=== PATIENT | female | born 1935 | race Caucasian/White ===

== ENCOUNTER 2016-08-09 16:34 | Inpatient (IN) | payer OTHER ==
[~2016-08-09] VITALS: Ht 160 cm; Wt 78.3 kg
[~2016-08-09 16:34] MED LIST: ASCO500T8 PO; BUDE10.2 INH; CHOL100014 PO; GABA300C10 PO; HYDR-3241 PO; LISI-167 PO; LOVA10TA; METF100P3 PO; METF500T4 PO; METH500T97 PO; SIMV20TA3 PO; SIMV40TA3 PO; TERI2.4P SQ; TIOT18CA INH; TRAM50TA2 PO; [UNRECOGNIZED DRUG - OTHER]; [UNRECOGNIZED DRUG - OTHER] TP; baby aspirin; blood pressure; cholesterol; norco
[2016-08-09] MEDS ORDERED: ALBUTEROL/IPRATROPIUM 2.5MG/0.5MG, 3 ML NPPB ONE (17:30)
[2016-08-09] MEDS ORDERED: methylPREDNISolone SOD SUCC 125 MG/2 ML IVP ONE (17:30)
[2016-08-09] MEDS ORDERED: SODIUM CHLORIDE 0.9% 1,000ML IVBOLUS ONE (17:30)
[2016-08-09] MEDS ORDERED: methylPREDNISolone SOD SUCC 125 MG/2 ML ONE (17:38)
[2016-08-09] MEDS ORDERED: ALBUTEROL/IPRATROPIUM 2.5MG/0.5MG, 3 ML ONE (17:51)
[2016-08-09 17:58] LABS: BLOOD UREA NITROGEN 26 mg/dL (7-18)
[2016-08-09] MEDS: CEFTRIAXONE PMX 1GM/50ML 50 ML IV SCH (20:00)
[2016-08-09] MEDS ORDERED: DEXTROSE 50%, 50ML SYRINGE IVPush PRN (20:00)
[2016-08-09] MEDS ORDERED: DEXTROSE 4 GM TAB.CHEW PO PRN (20:00)
[2016-08-09] MEDS ORDERED: GLUCAGON 1 MG IM PRN (20:00)
[2016-08-09] MEDS: D5%-0.45% NACL 1,000 ML IV SCH (20:01)
[2016-08-09] MEDS ORDERED: ONDANSETRON 2MG/ML, 2ML IVP PRN (20:30)
[2016-08-09] MEDS ORDERED: ENOXAPARIN 40 MG/0.4 ML SQ SCH (20:30)
[2016-08-09] MEDS ORDERED: BISACODYL 10 MG SUPP PR PRN (20:30)
[2016-08-09] MEDS ORDERED: POLYETHYLENE GLYCOL 17 GM PACKET PO PRN (20:30)
[2016-08-09] MEDS ORDERED: GUAIFENESIN/DM 200-20MG, 10ML UDC PO PRN (20:30)
[2016-08-09] MEDS ORDERED: DOCUSATE 100 MG CAPSULE PO PRN (20:30)
[2016-08-09] MEDS ORDERED: ACETAMINOPHEN 325 MG TABLET PO PRN (20:30)
[2016-08-09 20:31] LABS: IS PT STATUS REG ER OR PRE ER? YES
[2016-08-09] MEDS: methylPREDNISolone SOD SUCC 125 MG/2 ML IVPush SCH (20:41)
[2016-08-09] MEDS ORDERED: CEFTRIAXONE PMX 1GM/50ML 50 ML ONE (20:43)
[2016-08-09] MEDS ORDERED: ENOXAPARIN 40 MG/0.4 ML ONE (20:43)
[2016-08-09] MEDS ORDERED: ENOXAPARIN 30 MG/0.3 ML SQ SCH (21:53)
[2016-08-09 22:42] VITALS: BP 134/70
[2016-08-09] MEDS: SODIUM CHLORIDE FLUSH 10ML SYR IVF SCH (23:18)
[2016-08-09] MEDS: INSULIN ASPART 100 UNITS/ML, PEN SQ-INSULIN SCH (23:18)
[2016-08-09] MEDS: SIMVASTATIN 40 MG TABLET PO SCH (23:18)
[2016-08-09] MEDS: FLUTICASONE/VILANTEROL 200-25MCG/INH INH SCH (23:18)
[2016-08-10] MEDS: methylPREDNISolone SOD SUCC 125 MG/2 ML IVPush SCH ×5 (00:13→23:08)
[2016-08-10] MEDS: LISINOPRIL 10 MG TABLET PO SCH ×2 (00:13→20:23)
[2016-08-10 02:00] VITALS: BP 122/55
[2016-08-10 02:45] LABS: IS PT STATUS REG ER OR PRE ER? NO
[2016-08-10 06:08] LABS: ASPARTATE AMINO TRANSFERASE 24 U/L (15-37); BLOOD UREA NITROGEN 25 mg/dL (7-18)
[2016-08-10] MEDS: ALBUTEROL/IPRATROPIUM 2.5MG/0.5MG, 3 ML NPPB SCH ×3 (07:00→15:45)
[2016-08-10 07:32] VITALS: BP 127/60
[2016-08-10] MEDS: INSULIN ASPART 100 UNITS/ML, PEN SQ-INSULIN SCH ×4 (08:22→20:25)
[2016-08-10] MEDS: FLUTICASONE/VILANTEROL 200-25MCG/INH INH SCH (08:23)
[2016-08-10] MEDS: ASCORBIC ACID 500 MG TABLET PO SCH (08:23)
[2016-08-10] MEDS: SODIUM CHLORIDE FLUSH 10ML SYR IVF SCH ×2 (08:24→20:23)
[2016-08-10] MEDS ORDERED: IPRATROPIUM 0.5 MG/2.5 ML INHA NPPB SCH (09:00)
[2016-08-10] MEDS ORDERED: LISINOPRIL 10 MG TABLET PO SCH (09:00)
[2016-08-10] MEDS: D5%-0.45% NACL 1,000 ML IV SCH (11:29)
[2016-08-10 15:35] VITALS: BP 108/56
[2016-08-10] MEDS: SODIUM CHLORIDE 0.9% 1,000 ML IV SCH (18:10)
[2016-08-10 19:03] VITALS: BP 119/63
[2016-08-10] MEDS: SIMVASTATIN 40 MG TABLET PO SCH (20:23)
[2016-08-10] MEDS: CEFTRIAXONE PMX 1GM/50ML 50 ML IV SCH (20:23)
[2016-08-10] MEDS: ENOXAPARIN 40 MG/0.4 ML SQ SCH (20:24)
[2016-08-10] MEDS ORDERED: LORazepam 1MG TABLET PO PRN (20:30)
[2016-08-11 01:32] VITALS: BP 106/61
[2016-08-11] MEDS: methylPREDNISolone SOD SUCC 125 MG/2 ML IVPush SCH ×3 (04:27→18:18)
[2016-08-11 06:27] LABS: BLOOD UREA NITROGEN 28 mg/dL (7-18)
[2016-08-11] MEDS ORDERED: SODIUM POLYSTYRENE SULFONATE ORAL SUSP PO ONE (07:00)
[2016-08-11] MEDS: SODIUM CHLORIDE 0.9% 1,000 ML IV SCH ×2 (07:20→20:57)
[2016-08-11 07:41] VITALS: BP 112/65
[2016-08-11] MEDS: INSULIN ASPART 100 UNITS/ML, PEN SQ-INSULIN SCH ×4 (08:41→20:50)
[2016-08-11] MEDS: ASCORBIC ACID 500 MG TABLET PO SCH (08:42)
[2016-08-11] MEDS: FLUTICASONE/VILANTEROL 200-25MCG/INH INH SCH (08:43)
[2016-08-11] MEDS: SODIUM CHLORIDE FLUSH 10ML SYR IVF SCH ×2 (08:46→20:57)
[2016-08-11] MEDS: ALBUTEROL/IPRATROPIUM 2.5MG/0.5MG, 3 ML NPPB PRN (10:40)
[2016-08-11 14:00] VITALS: BP 113/52
[2016-08-11 19:10] VITALS: BP 158/67
[2016-08-11] MEDS: CEFTRIAXONE PMX 1GM/50ML 50 ML IV SCH (20:49)
[2016-08-11] MEDS: LISINOPRIL 10 MG TABLET PO SCH (20:49)
[2016-08-11] MEDS: SIMVASTATIN 40 MG TABLET PO SCH (20:50)
[2016-08-11] MEDS: ENOXAPARIN 40 MG/0.4 ML SQ SCH (20:50)
[2016-08-12] MEDS: methylPREDNISolone SOD SUCC 125 MG/2 ML IVPush SCH ×3 (00:38→12:32)
[2016-08-12 01:32] VITALS: BP 117/63
[2016-08-12 06:09] LABS: BLOOD UREA NITROGEN 32 mg/dL (7-18)
[2016-08-12 07:00] VITALS: BP 118/65
[2016-08-12] MEDS: FLUTICASONE/VILANTEROL 200-25MCG/INH INH SCH (07:53)
[2016-08-12] MEDS: INSULIN ASPART 100 UNITS/ML, PEN SQ-INSULIN SCH ×4 (07:53→21:11)
[2016-08-12] MEDS: SODIUM CHLORIDE FLUSH 10ML SYR IVF SCH ×2 (07:53→21:09)
[2016-08-12] MEDS: ASCORBIC ACID 500 MG TABLET PO SCH (07:53)
[2016-08-12] MEDS: SODIUM CHLORIDE 0.9% 1,000 ML IV SCH (11:09)
[2016-08-12 12:05] VITALS: BP 125/68
[2016-08-12] MEDS ORDERED: MAALOX/HYOSCYAMINE/LIDOCAINE 45 ML BOTTLE PO ONE (14:30)
[2016-08-12 20:00] VITALS: BP 127/66
[2016-08-12] MEDS: CEFTRIAXONE PMX 1GM/50ML 50 ML IV SCH (21:09)
[2016-08-12] MEDS: ENOXAPARIN 40 MG/0.4 ML SQ SCH (21:10)
[2016-08-12] MEDS: SIMVASTATIN 40 MG TABLET PO SCH (21:10)
[2016-08-12] MEDS: LISINOPRIL 10 MG TABLET PO SCH (21:10)
[2016-08-13 03:37] VITALS: BP 117/63
[2016-08-13] MEDS: INSULIN ASPART 100 UNITS/ML, PEN SQ-INSULIN SCH ×4 (07:00→21:50)
[2016-08-13 09:07] VITALS: BP 123/67
[2016-08-13] MEDS: FLUTICASONE/VILANTEROL 200-25MCG/INH INH SCH (09:43)
[2016-08-13] MEDS: ASCORBIC ACID 500 MG TABLET PO SCH (09:43)
[2016-08-13] MEDS: SODIUM CHLORIDE FLUSH 10ML SYR IVF SCH ×2 (09:44→21:49)
[2016-08-13] MEDS: PANTOPROZOLE 40MG TABLET PO SCH (09:44)
[2016-08-13 13:35] VITALS: BP 138/69
[2016-08-13 20:00] VITALS: BP 150/73
[2016-08-13] MEDS: ENOXAPARIN 40 MG/0.4 ML SQ SCH (21:00)
[2016-08-13] MEDS: CEFTRIAXONE PMX 1GM/50ML 50 ML IV SCH (21:49)
[2016-08-13] MEDS: LISINOPRIL 10 MG TABLET PO SCH (21:49)
[2016-08-13] MEDS: SIMVASTATIN 40 MG TABLET PO SCH (21:49)
[2016-08-13] MEDS: ALBUTEROL/IPRATROPIUM 2.5MG/0.5MG, 3 ML NPPB PRN (22:07)
[2016-08-14 02:00] VITALS: BP 123/62
[2016-08-14] MEDS: INSULIN ASPART 100 UNITS/ML, PEN SQ-INSULIN SCH ×4 (07:00→21:16)
[2016-08-14] MEDS: PANTOPROZOLE 40MG TABLET PO SCH (07:30)
[2016-08-14 08:00] VITALS: BP 123/56
[2016-08-14] MEDS: FLUTICASONE/VILANTEROL 200-25MCG/INH INH SCH (08:34)
[2016-08-14] MEDS: SODIUM CHLORIDE FLUSH 10ML SYR IVF SCH ×2 (08:34→21:13)
[2016-08-14] MEDS: ASCORBIC ACID 500 MG TABLET PO SCH (08:35)
[2016-08-14] MEDS ORDERED: ALBUTEROL SULFATE 2.5 MG/3 ML ONE (08:45)
[2016-08-14] MEDS: ALBUTEROL/IPRATROPIUM 2.5MG/0.5MG, 3 ML NPPB PRN ×2 (08:48→09:42)
[2016-08-14] MEDS ORDERED: FENTANYL PF 100 MCG/2ML ONE (08:50)
[2016-08-14] MEDS ORDERED: ONDANSETRON 2MG/ML, 2ML ONE (08:52)
[2016-08-14] MEDS ORDERED: SUCCINYLCHOLINE 20 MG/ML, 10ML ONE (08:52)
[2016-08-14] MEDS ORDERED: ETOMIDATE 40 MG/20 ML ONE (08:52)
[2016-08-14] MEDS ORDERED: ALBUTEROL/IPRATROPIUM 2.5MG/0.5MG, 3 ML ONE (09:33)
[2016-08-14] MEDS ORDERED: HYDROmorphone 1 MG/ML, 1ML IV PRN (10:00)
[2016-08-14] MEDS ORDERED: LABETALOL 5MG/ML, 20ML IV PRN (10:00)
[2016-08-14] MEDS ORDERED: METOPROLOL 1 MG/ML, 5ML IV PRN (10:00)
[2016-08-14] MEDS ORDERED: ONDANSETRON 2MG/ML, 2ML IVPush PRN (10:00)
[2016-08-14] MEDS ORDERED: FENTANYL PF 100 MCG/2ML IV PRN (10:00)
[2016-08-14] MEDS ORDERED: hydrALAzine 20 MG/ML, 1ML IV PRN (10:00)
[2016-08-14] MEDS ORDERED: EPHEDRINE 50 MG/ML, 1ML IVPush PRN (10:00)
[2016-08-14 10:45] VITALS: BP 123/56
[2016-08-14] MEDS: OMEPRAZOLE 20 MG CAPSULE.DR PO SCH (11:51)
[2016-08-14] MEDS: SUCRALFATE 1 GM/10 ML UDC PO SCH ×2 (11:52→21:13)
[2016-08-14 14:17] VITALS: BP 127/51
[2016-08-14 20:00] VITALS: BP 139/61
[2016-08-14] MEDS: CEFTRIAXONE PMX 1GM/50ML 50 ML IV SCH (21:13)
[2016-08-14] MEDS: LISINOPRIL 10 MG TABLET PO SCH (21:14)
[2016-08-14] MEDS: SIMVASTATIN 40 MG TABLET PO SCH (21:14)
[2016-08-14] MEDS: ENOXAPARIN 40 MG/0.4 ML SQ SCH (21:15)
[2016-08-15 02:00] VITALS: BP 137/70
[2016-08-15 05:44] LABS: BLOOD UREA NITROGEN 28 mg/dL (7-18)
[2016-08-15] MEDS: INSULIN ASPART 100 UNITS/ML, PEN SQ-INSULIN SCH ×4 (07:00→20:39)
[2016-08-15 07:02] VITALS: BP 151/67
[2016-08-15] MEDS: OMEPRAZOLE 20 MG CAPSULE.DR PO SCH (08:21)
[2016-08-15] MEDS: FLUTICASONE/VILANTEROL 200-25MCG/INH INH SCH (08:21)
[2016-08-15] MEDS: SUCRALFATE 1 GM/10 ML UDC PO SCH ×2 (08:21→20:32)
[2016-08-15] MEDS: ASCORBIC ACID 500 MG TABLET PO SCH (08:21)
[2016-08-15] MEDS: PANTOPROZOLE 40MG TABLET PO SCH (08:21)
[2016-08-15] MEDS: SODIUM CHLORIDE FLUSH 10ML SYR IVF SCH ×2 (08:23→20:32)
[2016-08-15 15:00] VITALS: BP 123/62
[2016-08-15 20:00] VITALS: BP 138/65
[2016-08-15] MEDS: CEFTRIAXONE PMX 1GM/50ML 50 ML IV SCH (20:32)
[2016-08-15] MEDS: SIMVASTATIN 40 MG TABLET PO SCH (20:33)
[2016-08-15] MEDS: LISINOPRIL 10 MG TABLET PO SCH (20:33)
[2016-08-15] MEDS: ENOXAPARIN 40 MG/0.4 ML SQ SCH (20:39)
[2016-08-16 02:00] VITALS: BP 146/74
[2016-08-16 06:55] VITALS: BP 149/68
[2016-08-16] MEDS: INSULIN ASPART 100 UNITS/ML, PEN SQ-INSULIN SCH ×2 (07:00→11:00)
[2016-08-16] MEDS: FLUTICASONE/VILANTEROL 200-25MCG/INH INH SCH (08:27)
[2016-08-16] MEDS: PANTOPROZOLE 40MG TABLET PO SCH (08:27)
[2016-08-16] MEDS: OMEPRAZOLE 20 MG CAPSULE.DR PO SCH (08:27)
[2016-08-16] MEDS: SUCRALFATE 1 GM/10 ML UDC PO SCH (08:27)
[2016-08-16] MEDS: ASCORBIC ACID 500 MG TABLET PO SCH (08:28)
[2016-08-16] MEDS: SODIUM CHLORIDE FLUSH 10ML SYR IVF SCH (08:29)
[2016-08-16] MEDS ORDERED: OMEP-110 PO (11:07)
[2016-08-16] MEDS ORDERED: SUCR1ORA2 PO (11:07)
[2016-08-16 12:45] VITALS: BP 146/63
== END 2016-08-16 14:06 | disposition home or self-care (01) | DRG 189 ==
LOC: ED 18:52 → SUATTDRO 19:49 → EDIP 20:01 → 4WST 21:45
PROVIDERS: ADMIT Internal Medicine; ATTEND Internal Medicine
PROC: 0DB68ZX Excision of Stomach, Via Natural or Artificial Opening Endoscopic, Diagnostic (ICD-10-PCS; 2016-08-14)
PROC: 0DB18ZX Excision of Upper Esophagus, Via Natural or Artificial Opening Endoscopic, Diagnostic (ICD-10-PCS; 2016-08-14)
PROC: 0D758ZZ Dilation of Esophagus, Via Natural or Artificial Opening Endoscopic (ICD-10-PCS; 2016-08-14)
PROC: 0DB38ZX Excision of Lower Esophagus, Via Natural or Artificial Opening Endoscopic, Diagnostic (ICD-10-PCS; principal; 2016-08-14 09:00)
DX: J96.21 Acute and chronic respiratory failure with hypoxia (principal); J18.9 Pneumonia, unspecified organism; J44.0 Chronic obstructive pulmonary disease with (acute) lower respiratory infection; J44.1 Chronic obstructive pulmonary disease with (acute) exacerbation; E87.1 Hypo-osmolality and hyponatremia; M48.06 Spinal stenosis, lumbar region; M81.0 Age-related osteoporosis without current pathological fracture; H40.9 Unspecified glaucoma; E78.5 Hyperlipidemia, unspecified; H35.30 Unspecified macular degeneration; D63.8 Anemia in other chronic diseases classified elsewhere; E11.65 Type 2 diabetes mellitus with hyperglycemia; E87.5 Hyperkalemia; I27.2 Other secondary pulmonary hypertension; I71.4 Abdominal aortic aneurysm, without rupture; J20.9 Acute bronchitis, unspecified; J31.0 Chronic rhinitis; K22.2 Esophageal obstruction; K29.80 Duodenitis without bleeding; T38.0X5A Adverse effect of glucocorticoids and synthetic analogues, initial encounter; Z85.828 Personal history of other malignant neoplasm of skin; Z87.11 Personal history of peptic ulcer disease; Z87.891 Personal history of nicotine dependence; Z99.81 Dependence on supplemental oxygen; Z79.899 Other long term (current) drug therapy; Z88.8 Allergy status to other drugs, medicaments and biological substances
CPT/HCPCS: 36415; 71010; 74220; 80048; 80053; 81003; 82040; 82962; 83036; 83605; 84484; 85025; 87040; 87070; 87081; 87205; 87880; 88305; 93005; 93306; 94640; 96361; 96372; 96374; J0696; J1650; J1815; J2405; J3010; J7620; J0330; J2930; J7030; J7512

== ENCOUNTER → 2018-01-19 | Outpatient (CLI) | payer OTHER ==
[~2018-01-19] MED LIST changes: +ATOR-2 PO; +METF500T17 PO; -METF500T4 PO; +OMEP-110 PO; +OMEP20TA62 PO; +SUCR1ORA5 PO
[2018-01-19 15:43] LABS: ALANINE AMINOTRANSFERASE 35 U/L (12-78); ALBUMIN 3.1 g/dL (3.4-5.0); ANION GAP 6 mmol/L (5-15); CALCIUM 9.1 mg/dL (8.5-10.1); CHLORIDE 104 mmol/L (98-107); CREATININE 1.02 mg/dL (0.55-1.02)
[2018-01-19 15:45] LABS: ALKALINE PHOSPHATASE 70 U/L (45-117); BILIRUBIN,TOTAL 0.2 mg/dL (0.2-1.0)
== END | disposition home or self-care (01) ==
LOC: STAR 14:17
PROVIDERS: ATTEND Internal Medicine Geriatric Medicine
DX: Z01.818 Encounter for other preprocedural examination (principal); D12.0 Benign neoplasm of cecum
CPT/HCPCS: 36415; 80053; 93005

== ENCOUNTER 2018-02-08 05:40 | Day surgery (SDC) | payer OTHER ==
[~2018-02-08] VITALS: Ht 160 cm; Wt 65.0 kg
[2018-02-08] MEDS ORDERED: LACTATED RINGERS 1,000 ML IV SCH (06:07)
[2018-02-08 06:27] VITALS: BP 118/72
[2018-02-08] MEDS ORDERED: EPINEPHRINE SYRINGE 0.1 MG/ML, 10ML ONE (07:00)
[2018-02-08] MEDS ORDERED: PROPOFOL 50 ML ONE (07:05)
[2018-02-08] MEDS ORDERED: METHYLENE BLUE 10 MG/ML 10ML ONE (07:37)
[2018-02-08] MEDS ORDERED: ONDANSETRON 2MG/ML, 2ML IV PRN (08:00)
[2018-02-08] MEDS ORDERED: FENTANYL PF 100 MCG/2ML IV PRN (08:00)
[2018-02-08] MEDS ORDERED: MIDAZOLAM 1 MG/ML, 2ML IV PRN (08:00)
[2018-02-08] MEDS ORDERED: FENTANYL PF 100 MCG/2ML ONE (09:11)
== END 2018-02-08 11:30 | disposition home or self-care (01) ==
LOC: OUT 05:40
PROVIDERS: ATTEND Internal Medicine Geriatric Medicine
DX: Z09 Encounter for follow-up examination after completed treatment for conditions other than malignant neoplasm (principal); K63.5 Polyp of colon; J44.9 Chronic obstructive pulmonary disease, unspecified; Z99.81 Dependence on supplemental oxygen; Z88.6 Allergy status to analgesic agent; Z86.010 Personal history of colon polyps
CPT/HCPCS: 45390; 74021; 82962; 88305; J2704; J3010; J7120; Q9968

== ENCOUNTER 2018-08-30 10:30 | Day surgery (SDC) | payer MEDICARE ==
[~2018-08-30] VITALS: Ht 160 cm; Wt 70.0 kg
[2018-08-30] MEDS ORDERED: LACTATED RINGERS 1,000 ML IV SCH (10:46)
[2018-08-30 10:47] VITALS: BP 149/63
[2018-08-30] MEDS ORDERED: PLEASE ENTER HEIGHT AND WEIGHT MC SCH (11:00)
[2018-08-30] MEDS ORDERED: MEPERIDINE/PF 25MG/0.5ML IVPush PRN (11:30)
[2018-08-30] MEDS ORDERED: KETOROLAC 30 MG/1 ML IV PRN (11:30)
[2018-08-30] MEDS ORDERED: LABETALOL 5MG/ML, 20ML IV PRN (11:30)
[2018-08-30] MEDS ORDERED: ONDANSETRON 2MG/ML, 2ML IVPush PRN (11:30)
[2018-08-30] MEDS ORDERED: HYDROcodone/APAP 7.5-325MG/15ML UDC PO PRN (11:30)
[2018-08-30] MEDS ORDERED: MIDAZOLAM 1 MG/ML, 2ML IV PRN (11:30)
[2018-08-30] MEDS ORDERED: HYDROmorphone 1 MG/ML, 1ML INJ IV PRN (11:30)
[2018-08-30] MEDS ORDERED: OXYcodone 5 MG/5 ML ORAL.SOL UDC PO PRN (11:30)
[2018-08-30] MEDS ORDERED: FENTANYL PF 100 MCG/2ML IV PRN (11:30)
[2018-08-30] MEDS ORDERED: METOCLOPRAMIDE 5 MG/ML, 2ML IV PRN (11:30)
[2018-08-30 11:42] LABS: ALANINE AMINOTRANSFERASE 45 U/L (12-78); ALBUMIN 3.6 g/dL (3.4-5.0); ANION GAP 8 mmol/L (5-15); CALCIUM 9.1 mg/dL (8.5-10.1); CHLORIDE 103 mmol/L (98-107); CREATININE 1.21 mg/dL (0.55-1.02)
[2018-08-30 11:44] LABS: ALKALINE PHOSPHATASE 101 U/L (45-117); BILIRUBIN,TOTAL 0.6 mg/dL (0.2-1.0); TOTAL PROTEIN 6.7 g/dL (6.4-8.2)
[2018-08-30] MEDS ORDERED: DEXAMETHASONE 4 MG/ML, 1ML ONE (14:54)
[2018-08-30] MEDS ORDERED: GLYCOPYRROLATE 0.2MG/1ML, 5ML ONE (14:54)
== END 2018-08-30 13:35 | disposition home or self-care (01) ==
LOC: OUT 10:30
PROVIDERS: ATTEND Internal Medicine Geriatric Medicine
DX: Z09 Encounter for follow-up examination after completed treatment for conditions other than malignant neoplasm (principal); K63.89 Other specified diseases of intestine; D64.9 Anemia, unspecified; I10 Essential (primary) hypertension; E66.9 Obesity, unspecified; Z86.010 Personal history of colon polyps; Z68.27 Body mass index [BMI] 27.0-27.9, adult; Z88.6 Allergy status to analgesic agent; Z88.8 Allergy status to other drugs, medicaments and biological substances
CPT/HCPCS: 36415; 45378; 80053; 93005; J1100; J7120

== ENCOUNTER 2018-09-03 09:54 | Inpatient (IN) | payer MEDICARE ==
[~2018-09-03] VITALS: Ht 162.6 cm; Wt 77.2 kg
--- NOTE | 2018-09-03 10:28 | NUR ---
PT TO ROOM FROM LOBBY VIA W/C
--- NOTE | 2018-09-03 10:31 | NUR ---
THIS IS A 83 YEAR OLD FEMALE WHO C/O OF MID BACK PAIN. PT DENIES ANY INJURY OR FALL. "IT JUST STARTED HURTING REALLY BAD THIS MORNING". PT IS ON CONTINOUS O2 AND BIPAP AT [facility]. FAMILY AT . PT TO X RAY VIA [facility]
--- NOTE | 2018-09-03 10:46 | NUR ---
PT UNABLE TO COMPLETE X RAY DUE TO PAIN. WILL DISCUSS WITH
--- NOTE | 2018-09-03 11:00 | NUR ---
PT STATES PAIN IS BETTER, RESTING, VERBALIZED NO OTHER NEEDS
[2018-09-03 11:17] LABS: BASOPHILS # (AUTO) 0.03 x10^3/uL (0-0.1); BASOPHILS % (AUTO) 1 % (0-1); EOSINOPHILS # (AUTO) 0.14 x10^3/uL (0-0.4); EOSINOPHILS % (AUTO) 2 % (1-7); LYMPHOCYTES # (AUTO) 0.81 x10^3/uL (1-3.4); LYMPHOCYTES % (AUTO) 13 % (22-44); MD NO; MEAN CORPUSCULAR HEMOGLOBIN 29.8 pg (27.0-34.8); MEAN CORPUSCULAR VOLUME 92.9 fL (80-100); MEAN PLATELET VOLUME 9.4 fL (7.4-10.4); MONOCYTES # (AUTO) 0.44 x10^3/uL (0.2-0.8); MONOCYTES % (AUTO) 7 % (2-9); NEUTROPHILS # (AUTO) 4.74 x10^3/uL (1.8-6.8); NEUTROPHILS % (AUTO) 77 % (42-75); PLATELET COUNT 207 x10^3/uL (130-400); RED BLOOD COUNT 3.66 x10^6/uL (3.82-5.3); RED CELL DISTRIBUTION WIDTH 14.5 % (9.6-15.2)
[2018-09-03 11:29] LABS: ALANINE AMINOTRANSFERASE 41 U/L (12-78); ALBUMIN 3.5 g/dL (3.4-5.0); ANION GAP 4 mmol/L (5-15); CALCIUM 9.3 mg/dL (8.5-10.1); CHLORIDE 105 mmol/L (98-107); CREATININE 1.33 mg/dL (0.55-1.02)
[2018-09-03 11:31] LABS: ALKALINE PHOSPHATASE 94 U/L (45-117); BILIRUBIN,TOTAL 0.4 mg/dL (0.2-1.0); TOTAL PROTEIN 6.7 g/dL (6.4-8.2)
[2018-09-03] MEDS ORDERED: MORPHINE SULFATE 4 MG/ML, 1ML ONE ×2 (11:54→13:36)
[2018-09-03] MEDS ORDERED: ONDANSETRON 2MG/ML, 2ML ONE (11:54)
[2018-09-03] MEDS ORDERED: ONDANSETRON 2MG/ML, 2ML IVPush ONE (12:00)
[2018-09-03] MEDS ORDERED: SODIUM CHLORIDE FLUSH 10ML SYR IVF ONE (12:00)
[2018-09-03] MEDS: MORPHINE SULFATE 4 MG/ML, 1ML IVPush PRN ×2 (12:05→13:37)
--- NOTE | 2018-09-03 13:39 | NUR ---
REMEDICATED PER PATIENT REQUESTS FOR MID BACK PAIN, FAMILY AT BS
--- NOTE | 2018-09-03 14:16 | NUR ---
PT SLEEPING, RESP EVEN AND UNLABORED.
[2018-09-03] MEDS ORDERED: BISACODYL 10 MG SUPP PR PRN (15:00)
[2018-09-03] MEDS ORDERED: DEXTROSE 50%, 50ML SYRINGE IVPush PRN (15:00)
[2018-09-03] MEDS ORDERED: LIDODERM 5% PATCH TD PRN (15:00)
[2018-09-03] MEDS ORDERED: POLYETHYLENE GLYCOL 17 GM PACKET PO PRN (15:00)
[2018-09-03] MEDS ORDERED: morphine SULFATE 10 MG/ML, 1ML IVPush PRN (15:00)
[2018-09-03] MEDS ORDERED: GLUCAGON 1 MG IM PRN (15:00)
[2018-09-03] MEDS ORDERED: ACETAMINOPHEN 325 MG TABLET PO PRN (15:00)
[2018-09-03] MEDS ORDERED: DEXTROSE 4 GM TAB.CHEW PO PRN (15:00)
--- NOTE | 2018-09-03 15:45 | NUR ---
REPORT TO TERE WILLIAM, PLAN OF CARE DISCUSSED
[2018-09-03 15:46] LABS: TROPONIN I 0.019 ng/mL (0.000-0.045)
[2018-09-03 15:50] LABS: HEMOGLOBIN A1C 6.7 % (4.2-6.3)
[2018-09-03 15:51] LABS: THYROID STIMULATING HORMONE 0.689 mIU/L (0.358-3.740)
[2018-09-03] MEDS ORDERED: IPRATROPIUM 0.5 MG/2.5 ML INHA NPPB SCH (16:00)
[2018-09-03] MEDS: INSULIN LISPRO 100 UNITS/ML, PEN SQ-INSULIN SCH ×2 (16:00→22:02)
[2018-09-03] MEDS: SODIUM CHLORIDE 0.9% 1,000 ML IV SCH (16:08)
[2018-09-03 16:52] VITALS: BP 135/63
[2018-09-03 18:33] VITALS: BP 119/61
[2018-09-03] MEDS: SODIUM CHLORIDE FLUSH 10ML SYR IVF SCH (21:00)
[2018-09-03 21:26] LABS: TROPONIN I 0.025 ng/mL (0.000-0.045)
[2018-09-03] MEDS: TEMPLATE NON-FORMULARY MED. (Budesonide/Formoterol Fumarate (Symbicort 160-4.5 Mcg Inhaler INH SCH (21:41)
[2018-09-03] MEDS: LACTULOSE 10 GM/15 ML UDC PO SCH (21:47)
[2018-09-03] MEDS: ATORVASTATIN 80 MG TABLET PO SCH (21:47)
[2018-09-03] MEDS: OXYcodone IR 5MG TABLET PO PRN (21:51)
[2018-09-04 01:43] VITALS: BP 99/55
[2018-09-04 02:57] LABS: CULTURE INDICATED? YES; MICROSCOPIC INDICATED
[2018-09-04] MEDS: SODIUM CHLORIDE 0.9% 1,000 ML IV SCH ×2 (06:40→22:05)
[2018-09-04] MEDS: INSULIN LISPRO 100 UNITS/ML, PEN SQ-INSULIN SCH ×4 (06:46→20:34)
[2018-09-04 06:59] LABS: BASOPHILS # (AUTO) 0.03 x10^3/uL (0-0.1); BASOPHILS % (AUTO) 1 % (0-1); EOSINOPHILS # (AUTO) 0.18 x10^3/uL (0-0.4); EOSINOPHILS % (AUTO) 3 % (1-7); LYMPHOCYTES # (AUTO) 0.68 x10^3/uL (1-3.4); LYMPHOCYTES % (AUTO) 12 % (22-44); MD NO; MEAN CORPUSCULAR HGB CONC 33.2 g/dL (32.4-35.8); MEAN CORPUSCULAR VOLUME 93.3 fL (80-100); MEAN PLATELET VOLUME 9.4 fL (7.4-10.4); MONOCYTES % (AUTO) 7 % (2-9); NEUTROPHILS # (AUTO) 4.67 x10^3/uL (1.8-6.8); NEUTROPHILS % (AUTO) 78 % (42-75); PLATELET COUNT 196 x10^3/uL (130-400); RED BLOOD COUNT 3.62 x10^6/uL (3.82-5.3); RED CELL DISTRIBUTION WIDTH 14.2 % (9.6-15.2)
[2018-09-04 07:12] LABS: ALBUMIN 3.2 g/dL (3.4-5.0); CALCIUM 8.9 mg/dL (8.5-10.1); CHLORIDE 107 mmol/L (98-107)
[2018-09-04 07:16] LABS: ALANINE AMINOTRANSFERASE 35 U/L (12-78); ALKALINE PHOSPHATASE 91 U/L (45-117); BILIRUBIN,TOTAL 0.5 mg/dL (0.2-1.0); CREATININE 1.25 mg/dL (0.55-1.02); TOTAL PROTEIN 6.5 g/dL (6.4-8.2)
[2018-09-04 07:17] VITALS: BP 111/60
[2018-09-04 07:20] LABS: ANION GAP 5 mmol/L (5-15)
[2018-09-04] MEDS: OMEPRAZOLE 20 MG CAPSULE.DR PO SCH (08:01)
[2018-09-04] MEDS: BACLOFEN 10 MG TABLET PO PRN ×2 (08:01→22:05)
[2018-09-04] MEDS: TEMPLATE NON-FORMULARY MED. (Budesonide/Formoterol Fumarate (Symbicort 160-4.5 Mcg Inhaler INH SCH ×2 (08:01→22:06)
[2018-09-04] MEDS: LACTULOSE 10 GM/15 ML UDC PO SCH (08:01)
[2018-09-04] MEDS: SODIUM CHLORIDE FLUSH 10ML SYR IVF SCH ×2 (08:01→22:05)
[2018-09-04] MEDS: CEFTRIAXONE PMX 1GM/50ML 50 ML IV SCH (08:01)
[2018-09-04] MEDS: SENNA/DOCUSATE TABLET PO SCH (08:02)
[2018-09-04 12:16] VITALS: BP 129/52
[2018-09-04] MEDS: OXYcodone IR 5MG TABLET PO PRN ×2 (12:48→17:30)
[2018-09-04] MEDS: IPRATROPIUM 0.5 MG/2.5 ML INHA NPPB SCH ×2 (16:10→22:00)
[2018-09-04 20:00] VITALS: BP 120/56
[2018-09-04] MEDS: DOCUSATE 100 MG CAPSULE PO PRN (22:05)
[2018-09-04] MEDS: ATORVASTATIN 80 MG TABLET PO SCH (22:05)
[2018-09-05] MEDS: OXYcodone IR 5MG TABLET PO PRN ×5 (00:40→21:26)
[2018-09-05 00:44] VITALS: BP 123/64
[2018-09-05] MEDS: IPRATROPIUM 0.5 MG/2.5 ML INHA NPPB SCH ×4 (04:00→20:50)
[2018-09-05 05:35] LABS: ALBUMIN 2.8 g/dL (3.4-5.0); ANION GAP 3 mmol/L (5-15); CALCIUM 8.6 mg/dL (8.5-10.1); CHLORIDE 109 mmol/L (98-107)
[2018-09-05 05:38] LABS: CREATININE 1.04 mg/dL (0.55-1.02)
[2018-09-05] MEDS: INSULIN LISPRO 100 UNITS/ML, PEN SQ-INSULIN SCH ×4 (06:18→21:31)
[2018-09-05 07:03] VITALS: BP 110/54
[2018-09-05] MEDS: TEMPLATE NON-FORMULARY MED. (Budesonide/Formoterol Fumarate (Symbicort 160-4.5 Mcg Inhaler INH SCH ×2 (09:00→21:00)
[2018-09-05] MEDS: SENNA/DOCUSATE TABLET PO SCH (09:00)
[2018-09-05] MEDS: CEFTRIAXONE PMX 1GM/50ML 50 ML IV SCH (09:03)
[2018-09-05] MEDS: SODIUM CHLORIDE FLUSH 10ML SYR IVF SCH ×2 (09:04→21:00)
[2018-09-05] MEDS: OMEPRAZOLE 20 MG CAPSULE.DR PO SCH (09:04)
[2018-09-05 12:52] VITALS: BP 122/72
[2018-09-05] MEDS: SODIUM CHLORIDE 0.9% 1,000 ML IV SCH (13:36)
[2018-09-05] MEDS: GABAPENTIN 300 MG CAPSULE PO PRN (14:57)
[2018-09-05 19:34] VITALS: BP 131/64
[2018-09-05] MEDS: ATORVASTATIN 80 MG TABLET PO SCH (21:26)
[2018-09-05] MEDS: DOCUSATE 100 MG CAPSULE PO PRN (21:26)
[2018-09-06 02:00] VITALS: BP 101/55
[2018-09-06] MEDS: OXYcodone IR 5MG TABLET PO PRN ×3 (02:30→18:53)
[2018-09-06] MEDS: SODIUM CHLORIDE 0.9% 1,000 ML IV SCH (02:35)
[2018-09-06] MEDS: IPRATROPIUM 0.5 MG/2.5 ML INHA NPPB SCH ×4 (03:15→20:00)
[2018-09-06 05:35] LABS: ALBUMIN 2.6 g/dL (3.4-5.0); ANION GAP 4 mmol/L (5-15); CALCIUM 8.6 mg/dL (8.5-10.1); CHLORIDE 105 mmol/L (98-107)
[2018-09-06 05:37] LABS: CREATININE 1.08 mg/dL (0.55-1.02)
[2018-09-06 06:46] VITALS: BP 112/54
[2018-09-06] MEDS: INSULIN LISPRO 100 UNITS/ML, PEN SQ-INSULIN SCH ×4 (07:00→20:20)
[2018-09-06] MEDS: TEMPLATE NON-FORMULARY MED. (Budesonide/Formoterol Fumarate (Symbicort 160-4.5 Mcg Inhaler INH SCH ×2 (09:00→20:20)
[2018-09-06] MEDS: GABAPENTIN 300 MG CAPSULE PO PRN (09:43)
[2018-09-06] MEDS: SODIUM CHLORIDE FLUSH 10ML SYR IVF SCH ×2 (09:43→20:21)
[2018-09-06] MEDS: OMEPRAZOLE 20 MG CAPSULE.DR PO SCH (09:43)
[2018-09-06] MEDS: SENNA/DOCUSATE TABLET PO SCH (09:43)
[2018-09-06 12:59] VITALS: BP 102/42
[2018-09-06 20:03] VITALS: BP 133/67
[2018-09-06] MEDS: ATORVASTATIN 80 MG TABLET PO SCH (20:21)
[2018-09-07 02:20] VITALS: BP 111/56
[2018-09-07] MEDS: OXYcodone IR 5MG TABLET PO PRN ×2 (03:40→09:50)
[2018-09-07] MEDS: IPRATROPIUM 0.5 MG/2.5 ML INHA NPPB SCH (04:00)
[2018-09-07 05:39] LABS: ALBUMIN 2.7 g/dL (3.4-5.0); ANION GAP 3 mmol/L (5-15); CALCIUM 8.8 mg/dL (8.5-10.1); CHLORIDE 105 mmol/L (98-107)
[2018-09-07 05:41] LABS: CREATININE 1.09 mg/dL (0.55-1.02)
[2018-09-07 06:37] VITALS: BP 110/65
[2018-09-07] MEDS: INSULIN LISPRO 100 UNITS/ML, PEN SQ-INSULIN SCH ×2 (07:00→11:30)
[2018-09-07] MEDS: OMEPRAZOLE 20 MG CAPSULE.DR PO SCH (08:37)
[2018-09-07] MEDS: TEMPLATE NON-FORMULARY MED. (Budesonide/Formoterol Fumarate (Symbicort 160-4.5 Mcg Inhaler INH SCH (08:37)
[2018-09-07] MEDS: SENNA/DOCUSATE TABLET PO SCH (08:37)
[2018-09-07] MEDS: SODIUM CHLORIDE FLUSH 10ML SYR IVF SCH (08:37)
[2018-09-07] MEDS ORDERED: ALBUTEROL SULFATE 2.5 MG/3 ML NPPB SCH (09:00)
[2018-09-07] MEDS ORDERED: BUDESONIDE 0.5 MG/2 ML INHA INH SCH (09:00)
[2018-09-07] MEDS: ALBUTEROL/IPRATROPIUM 2.5MG/0.5MG, 3 ML HHN SCH ×2 (09:46→15:25)
[2018-09-07] MEDS ORDERED: IPRA3AMP30 HHN (12:30)
[2018-09-07] MEDS ORDERED: OXYC5TAB3 PO (12:30)
[2018-09-07] MEDS ORDERED: SENN-177 PO (12:30)
[2018-09-07] MEDS ORDERED: ACET325T14 PO (12:32)
[2018-09-07] MEDS ORDERED: LIDO700A20 TD (12:32)
[2018-09-07 13:25] VITALS: BP 124/59
== END 2018-09-07 14:55 | DRG 542 ==
LOC: ED 11:48 → EDIP 15:30 → 4NOR 16:49
PROVIDERS: ADMIT Internal Medicine; ATTEND Internal Medicine
PROC: 5A09357 Assistance with Respiratory Ventilation, Less than 24 Consecutive Hours, Continuous Positive Airway Pressure (ICD-10-PCS; principal; 2018-09-07)
DX: M48.54XA Collapsed vertebra, not elsewhere classified, thoracic region, initial encounter for fracture (principal); N17.0 Acute kidney failure with tubular necrosis; N39.0 Urinary tract infection, site not specified; J96.11 Chronic respiratory failure with hypoxia; M48.56XA Collapsed vertebra, not elsewhere classified, lumbar region, initial encounter for fracture; D64.9 Anemia, unspecified; E11.9 Type 2 diabetes mellitus without complications; E78.5 Hyperlipidemia, unspecified; G47.33 Obstructive sleep apnea (adult) (pediatric); H35.30 Unspecified macular degeneration; H40.9 Unspecified glaucoma; I27.20 Pulmonary hypertension, unspecified; I71.4 Abdominal aortic aneurysm, without rupture; J44.9 Chronic obstructive pulmonary disease, unspecified; K59.00 Constipation, unspecified; K63.5 Polyp of colon; M48.061 Spinal stenosis, lumbar region without neurogenic claudication; M81.0 Age-related osteoporosis without current pathological fracture; N39.3 Stress incontinence (female) (male); Z80.0 Family history of malignant neoplasm of digestive organs; Z85.828 Personal history of other malignant neoplasm of skin; Z86.010 Personal history of colon polyps; Z87.891 Personal history of nicotine dependence
CPT/HCPCS: 36415; 72040; 72128; 72131; 72146; 72148; 74018; 80048; 80053; 81001; 82040; 82962; 83036; 83735; 84132; 84443; 84484; 85025; 87086; 93005; 94640; 96374; 96375; G0378; J0696; J2405; J7620; J7626; J7644; J2270; J7030

== ENCOUNTER 2018-09-17 14:59 | Inpatient (IN) | payer MEDICARE ==
[~2018-09-17] VITALS: Ht 165.1 cm; Wt 70.4 kg
[~2018-09-17 14:59] MED LIST changes: +ACET325T14 PO; +IPRA3AMP30 HHN; +LIDO700A20 TD; +OXYC5TAB3 PO; +SENN-177 PO
--- NOTE | 2018-09-17 15:24 | NUR ---
PT BIB [facility] AFTER [facility]. PER EMS, PER FAMILY, PT IS USUALLY A+O X4, CURRENTLY PT IS A+O TO PERSON ONLY. PT DOES NOT REMEMBER THE FALL, PT KEEPS ASKING WHAT HAPPENED EVEN AFTER REMINDING HER SEVERAL TIMES. PT HAS CERVICAL TENDERNESS, C-COLLAR APPLIED. MULTIPLE ABRASIONS PRESENT. TECHS IN TO CLEAN WOUNDS.
--- NOTE | 2018-09-17 15:28 | NUR ---
ER INTO ASSESS PT.
[2018-09-17] MEDS ORDERED: DIPH,PERTUSS(ACELL),TET VAC/PF 0.5 ML IM-VACC ONE (15:30)
[2018-09-17 15:42] LABS: BASOPHILS # (AUTO) 0.05 x10^3/uL (0-0.1); BASOPHILS % (AUTO) 1 % (0-1); EOSINOPHILS # (AUTO) 0.16 x10^3/uL (0-0.4); EOSINOPHILS % (AUTO) 2 % (1-7); LYMPHOCYTES # (AUTO) 0.88 x10^3/uL (1-3.4); LYMPHOCYTES % (AUTO) 11 % (22-44); MD NO; MEAN CORPUSCULAR HEMOGLOBIN 30.3 pg (27.0-34.8); MEAN CORPUSCULAR HGB CONC 32.7 g/dL (32.4-35.8); MEAN CORPUSCULAR VOLUME 92.6 fL (80-100); MEAN PLATELET VOLUME 10.3 fL (7.4-10.4); MONOCYTES # (AUTO) 0.56 x10^3/uL (0.2-0.8); MONOCYTES % (AUTO) 7 % (2-9); NEUTROPHILS # (AUTO) 6.31 x10^3/uL (1.8-6.8); NEUTROPHILS % (AUTO) 79 % (42-75); PLATELET COUNT 235 x10^3/uL (130-400); RED BLOOD COUNT 3.78 x10^6/uL (3.82-5.3); RED CELL DISTRIBUTION WIDTH 13.4 % (9.6-15.2)
--- NOTE | 2018-09-17 15:43 | NUR ---
PT TO CT/RAD
[2018-09-17 15:53] LABS: ALBUMIN 3.4 g/dL (3.4-5.0); ANION GAP 5 mmol/L (5-15); CALCIUM 8.9 mg/dL (8.5-10.1); CHLORIDE 100 mmol/L (98-107); CREATININE 1.19 mg/dL (0.55-1.02)
[2018-09-17 15:56] LABS: TROPONIN I 0.019 ng/mL (0.000-0.045)
--- NOTE | 2018-09-17 16:05 | NUR ---
er into see pt. pt to be admitted.
[2018-09-17 16:21] LABS: PROTHROMBIN TIME 10.5 Seconds (9.6-11.5)
[2018-09-17] MEDS ORDERED: SODIUM CHLORIDE FLUSH 10ML SYR IVF PRN (16:30)
[2018-09-17] MEDS ORDERED: SODIUM CHLORIDE FLUSH 10ML SYR IVF ONE (16:30)
[2018-09-17] MEDS ORDERED: BACITRACIN ZINC OINT 500U/GM, 0.9 GM ONE ×2 (16:52→17:30)
[2018-09-17] MEDS ORDERED: ONDANSETRON 2MG/ML, 2ML IVPush ONE (17:00)
[2018-09-17] MEDS ORDERED: ALBUTEROL/IPRATROPIUM 2.5MG/0.5MG, 3 ML HHN PRN (17:00)
[2018-09-17] MEDS ORDERED: ACETAMINOPHEN 325 MG TABLET PO PRN (17:00)
--- NOTE | 2018-09-17 17:06 | NUR ---
PT RESTING ON GURNEY. PT COMPLAINS OF A HEADACHE AND BACK HURTING. DAUGHTER AT BEDSIDE.
[2018-09-17] MEDS ORDERED: MORPHINE SULFATE 4 MG/ML, 1ML ONE (17:09)
[2018-09-17] MEDS: MORPHINE SULFATE 4 MG/ML, 1ML IVPush PRN ×2 (17:11→18:13)
--- NOTE | 2018-09-17 17:22 | NUR ---
report given to STEWART hunter on [facility] tele
--- NOTE | 2018-09-17 17:39 | NUR ---
pt medicated for pain per emar
[2018-09-17] MEDS: IPRATROPIUM 0.5 MG/2.5 ML INHA NPPB SCH (18:30)
[2018-09-17] MEDS: SODIUM CHLORIDE 0.9% 1,000 ML IV SCH (18:36)
[2018-09-17] MEDS: ATORVASTATIN 80 MG TABLET PO SCH (20:26)
[2018-09-17 22:00] VITALS: BP 154/71
[2018-09-17 22:07] LABS: ALANINE AMINOTRANSFERASE 32 U/L (12-78); ALBUMIN 3.4 g/dL (3.4-5.0); ANION GAP 4 mmol/L (5-15); CALCIUM 8.8 mg/dL (8.5-10.1); CHLORIDE 99 mmol/L (98-107); CREATININE 1.14 mg/dL (0.55-1.02)
[2018-09-17 22:10] LABS: ALKALINE PHOSPHATASE 104 U/L (45-117); BILIRUBIN,TOTAL 0.4 mg/dL (0.2-1.0); TOTAL PROTEIN 6.7 g/dL (6.4-8.2)
[2018-09-18] MEDS: HYDROcodone/APAP 5/325 TABLET PO PRN ×4 (00:14→21:40)
[2018-09-18] MEDS: IPRATROPIUM 0.5 MG/2.5 ML INHA NPPB SCH ×4 (00:30→18:30)
[2018-09-18 02:03] VITALS: BP 97/58
[2018-09-18 06:47] VITALS: BP 110/70
[2018-09-18 08:26] LABS: BASOPHILS # (AUTO) 0.02 x10^3/uL (0-0.1); BASOPHILS % (AUTO) 0 % (0-1); EOSINOPHILS # (AUTO) 0.12 x10^3/uL (0-0.4); EOSINOPHILS % (AUTO) 2 % (1-7); LYMPHOCYTES # (AUTO) 0.76 x10^3/uL (1-3.4); LYMPHOCYTES % (AUTO) 11 % (22-44); MD NO; MEAN CORPUSCULAR HEMOGLOBIN 29.7 pg (27.0-34.8); MEAN PLATELET VOLUME 9.6 fL (7.4-10.4); MONOCYTES # (AUTO) 0.54 x10^3/uL (0.2-0.8); MONOCYTES % (AUTO) 8 % (2-9); NEUTROPHILS # (AUTO) 5.35 x10^3/uL (1.8-6.8); NEUTROPHILS % (AUTO) 79 % (42-75); PLATELET COUNT 180 x10^3/uL (130-400); RED BLOOD COUNT 3.48 x10^6/uL (3.82-5.3); RED CELL DISTRIBUTION WIDTH 12.8 % (9.6-15.2)
[2018-09-18 08:28] LABS: ANION GAP 3 mmol/L (5-15); CALCIUM 8.7 mg/dL (8.5-10.1); CHLORIDE 101 mmol/L (98-107); CREATININE 1.04 mg/dL (0.55-1.02)
[2018-09-18] MEDS: SODIUM CHLORIDE 0.9% 1,000 ML IV SCH (08:54)
[2018-09-18] MEDS: DOCUSATE 100 MG CAPSULE PO SCH (08:54)
[2018-09-18] MEDS: OMEPRAZOLE 20 MG CAPSULE.DR PO SCH (08:54)
[2018-09-18] MEDS: SENNA/DOCUSATE TABLET PO SCH (08:55)
[2018-09-18] MEDS: LISINOPRIL 10 MG TABLET PO SCH (08:55)
[2018-09-18] MEDS: ASCORBIC ACID 500 MG TABLET PO SCH (08:55)
[2018-09-18] MEDS ORDERED: ONDANSETRON 2MG/ML, 2ML ONE (09:06)
[2018-09-18] MEDS: ONDANSETRON 2MG/ML, 2ML IVPush PRN ×2 (09:08→20:33)
[2018-09-18 14:09] VITALS: BP 148/73
[2018-09-18] MEDS: BUDESONIDE 0.5 MG/2 ML INHA NPPB SCH (15:33)
[2018-09-18 19:54] VITALS: BP 133/61
[2018-09-18] MEDS: ATORVASTATIN 80 MG TABLET PO SCH (21:40)
[2018-09-19] MEDS: ACETAMINOPHEN 325 MG TABLET PO PRN ×2 (00:30→17:38)
[2018-09-19] MEDS: IPRATROPIUM 0.5 MG/2.5 ML INHA NPPB SCH ×4 (00:30→19:30)
[2018-09-19 02:53] VITALS: BP 106/62
[2018-09-19] MEDS: HYDROcodone/APAP 5/325 TABLET PO PRN ×5 (03:13→20:31)
[2018-09-19 05:57] LABS: BASOPHILS # (AUTO) 0.03 x10^3/uL (0-0.1); BASOPHILS % (AUTO) 0 % (0-1); EOSINOPHILS # (AUTO) 0.15 x10^3/uL (0-0.4); EOSINOPHILS % (AUTO) 2 % (1-7); LYMPHOCYTES # (AUTO) 0.72 x10^3/uL (1-3.4); LYMPHOCYTES % (AUTO) 10 % (22-44); MD NO; MEAN CORPUSCULAR HEMOGLOBIN 30.7 pg (27.0-34.8); MEAN CORPUSCULAR HGB CONC 32.6 g/dL (32.4-35.8); MEAN CORPUSCULAR VOLUME 94.1 fL (80-100); MONOCYTES # (AUTO) 0.61 x10^3/uL (0.2-0.8); MONOCYTES % (AUTO) 8 % (2-9); NEUTROPHILS # (AUTO) 6.01 x10^3/uL (1.8-6.8); NEUTROPHILS % (AUTO) 80 % (42-75); PLATELET COUNT 166 x10^3/uL (130-400)
[2018-09-19] MEDS: BUDESONIDE 0.5 MG/2 ML INHA NPPB SCH ×2 (06:40→19:30)
[2018-09-19 06:45] VITALS: BP 130/68
[2018-09-19] MEDS: OMEPRAZOLE 20 MG CAPSULE.DR PO SCH (08:11)
[2018-09-19] MEDS: LISINOPRIL 10 MG TABLET PO SCH (08:12)
[2018-09-19] MEDS: DOCUSATE 100 MG CAPSULE PO SCH (08:12)
[2018-09-19] MEDS: ASCORBIC ACID 500 MG TABLET PO SCH (08:12)
[2018-09-19] MEDS: SENNA/DOCUSATE TABLET PO SCH (08:12)
[2018-09-19] MEDS: LIDODERM 5% PATCH TD SCH (08:18)
[2018-09-19] MEDS ORDERED: POLYETHYLENE GLYCOL 17 GM PACKET PO ONE (08:30)
[2018-09-19] MEDS: INSULIN LISPRO 100 UNITS/ML, PEN SQ-INSULIN SCH ×3 (11:00→19:49)
[2018-09-19 14:00] VITALS: BP 132/70
[2018-09-19 14:47] LABS: MICROSCOPIC AUTO
[2018-09-19 14:48] LABS: CULTURE INDICATED? YES
[2018-09-19] MEDS ORDERED: BISACODYL 10 MG SUPP PR PRN (15:30)
[2018-09-19] MEDS: ONDANSETRON 2MG/ML, 2ML IVPush PRN (17:30)
[2018-09-19 19:34] VITALS: BP 149/63
[2018-09-19] MEDS: ATORVASTATIN 80 MG TABLET PO SCH (20:31)
[2018-09-20] MEDS: HYDROcodone/APAP 5/325 TABLET PO PRN ×3 (00:25→18:52)
[2018-09-20 01:19] VITALS: BP 127/64
[2018-09-20] MEDS: IPRATROPIUM 0.5 MG/2.5 ML INHA NPPB SCH ×3 (03:00→14:00)
[2018-09-20] MEDS: INSULIN LISPRO 100 UNITS/ML, PEN SQ-INSULIN SCH ×3 (07:00→16:00)
[2018-09-20] MEDS: BUDESONIDE 0.5 MG/2 ML INHA NPPB SCH (07:00)
[2018-09-20 07:36] VITALS: BP 163/61
[2018-09-20] MEDS: OMEPRAZOLE 20 MG CAPSULE.DR PO SCH (07:59)
[2018-09-20 08:02] VITALS: BP 158/70
[2018-09-20] MEDS: DOCUSATE 100 MG CAPSULE PO SCH (08:28)
[2018-09-20] MEDS: ASCORBIC ACID 500 MG TABLET PO SCH (08:29)
[2018-09-20] MEDS: LIDODERM 5% PATCH TD SCH (08:29)
[2018-09-20] MEDS ORDERED: KETOROLAC 30 MG/1 ML IVPush PRN (08:30)
[2018-09-20] MEDS: LISINOPRIL 10 MG TABLET PO SCH (08:35)
[2018-09-20] MEDS: SENNA/DOCUSATE TABLET PO SCH (08:36)
[2018-09-20] MEDS ORDERED: LACTULOSE 10 GM/15 ML UDC PO SCH (09:00)
[2018-09-20 12:54] VITALS: BP 135/54
[2018-09-20] MEDS ORDERED: LACT10SO5 PO (15:07)
[2018-09-20] MEDS ORDERED: IBUP-1222 PO (15:07)
== END 2018-09-20 22:34 | DRG 85 ==
LOC: ED 16:34 → EDIP 17:08 → 4EST 18:07
PROVIDERS: ADMIT Internal Medicine; ATTEND Internal Medicine
DX: S06.6X1A Traumatic subarachnoid hemorrhage with loss of consciousness of 30 minutes or less, initial encounter (principal); G93.41 Metabolic encephalopathy; S22.31XA Fracture of one rib, right side, initial encounter for closed fracture; E11.9 Type 2 diabetes mellitus without complications; G47.33 Obstructive sleep apnea (adult) (pediatric); H35.30 Unspecified macular degeneration; I10 Essential (primary) hypertension; I27.20 Pulmonary hypertension, unspecified; J44.9 Chronic obstructive pulmonary disease, unspecified; K59.00 Constipation, unspecified; R41.2 Retrograde amnesia; S00.81XA Abrasion of other part of head, initial encounter; S50.11XA Contusion of right forearm, initial encounter; S80.211A Abrasion, right knee, initial encounter; I71.4 Abdominal aortic aneurysm, without rupture; W18.30XA Fall on same level, unspecified, initial encounter; Y93.89 Activity, other specified; Z80.0 Family history of malignant neoplasm of digestive organs; Z85.828 Personal history of other malignant neoplasm of skin; Z87.891 Personal history of nicotine dependence; Z88.8 Allergy status to other drugs, medicaments and biological substances
CPT/HCPCS: 36415; 70450; 71045; 72072; 72110; 72125; 74018; 80048; 80053; 81001; 82040; 82962; 83690; 84484; 85025; 85610; 85730; 87077; 87086; 87186; 93005; 94640; 99285; G0378; J1885; J2405; J7626; J7644; J2270; J7030

== ENCOUNTER 2018-09-23 16:45 | Inpatient (IN) | payer MEDICARE ==
[~2018-09-23] VITALS: Ht 165.1 cm; Wt 66.5 kg
[~2018-09-23 16:45] MED LIST changes: +IBUP-1222 PO; +LACT10SO5 PO
--- NOTE | 2018-09-23 16:48 | NUR ---
Bedside SBAR report received from RNSandra.
[2018-09-23] MEDS ORDERED: PLEASE ENTER HEIGHT AND WEIGHT MC SCH (17:00)
[2018-09-23] MEDS ORDERED: SODIUM CHLORIDE FLUSH 10ML SYR IVF ONE (17:00)
--- NOTE | 2018-09-23 17:19 | NUR ---
PIV started, pt aware of plan for CT scan.
[2018-09-23 17:39] LABS: INTERNATIONAL NORMALIZED RATIO 0.93 (0.93-1.1); MEAN CORPUSCULAR HEMOGLOBIN 30.2 pg (27.0-34.8); MEAN CORPUSCULAR HGB CONC 32.8 g/dL (32.4-35.8); MEAN CORPUSCULAR VOLUME 92.3 fL (80-100); MEAN PLATELET VOLUME 9.6 fL (7.4-10.4); PLATELET COUNT 300 x10^3/uL (130-400); PROTHROMBIN TIME 9.8 Seconds (9.6-11.5); RED BLOOD COUNT 4.18 x10^6/uL (3.82-5.3); RED CELL DISTRIBUTION WIDTH 12.6 % (9.6-15.2)
[2018-09-23 17:42] LABS: ALANINE AMINOTRANSFERASE 31 U/L (12-78); ALBUMIN 3.5 g/dL (3.4-5.0); CALCIUM 9.2 mg/dL (8.5-10.1); CHLORIDE 81 mmol/L (98-107); CREATININE 0.94 mg/dL (0.55-1.02)
[2018-09-23 17:45] LABS: ALKALINE PHOSPHATASE 128 U/L (45-117); BILIRUBIN,TOTAL 0.6 mg/dL (0.2-1.0); TOTAL PROTEIN 7.2 g/dL (6.4-8.2)
--- NOTE | 2018-09-23 17:47 | NUR ---
Pt to imaging, with tech, via [place].
[2018-09-23 17:51] LABS: BASOPHILS # (AUTO) 0.02 x10^3/uL (0-0.1); BASOPHILS % (AUTO) 0 % (0-1); EOSINOPHILS # (AUTO) 0.12 x10^3/uL (0-0.4); EOSINOPHILS % (AUTO) 2 % (1-7); LYMPHOCYTES # (AUTO) 0.64 x10^3/uL (1-3.4); LYMPHOCYTES % (AUTO) 9 % (22-44); MD SCAN; MONOCYTES # (AUTO) 0.42 x10^3/uL (0.2-0.8); MONOCYTES % (AUTO) 6 % (2-9); NEUTROPHILS # (AUTO) 6.15 x10^3/uL (1.8-6.8); NEUTROPHILS % (AUTO) 84 % (42-75)
[2018-09-23 18:02] LABS: ANION GAP 5 mmol/L (5-15)
[2018-09-23] MEDS ORDERED: OMNIPAQUE 350 MG/ML, 100ML BOTTLE ONE (18:08)
[2018-09-23] MEDS ORDERED: SODIUM CHLORIDE 0.9% 1,000 ML IV ONE (18:25)
--- NOTE | 2018-09-23 18:27 | NUR ---
XR at bedside.
--- NOTE | 2018-09-23 18:40 | NUR ---
Telephone SBAR report given to RNBogdan. Pt made aware of new room assignment.
[2018-09-23] MEDS ORDERED: hydrALAzine 20 MG/ML, 1ML IVPush PRN (20:00)
[2018-09-23] MEDS ORDERED: ALBUTEROL SULFATE 2.5 MG/3 ML NPPB SCH (20:00)
[2018-09-23 20:15] VITALS: BP 147/68
[2018-09-23] MEDS ORDERED: IPRATROPIUM 0.5 MG/2.5 ML INHA ONE (20:35)
[2018-09-23] MEDS: SODIUM CHLORIDE 0.9% 1,000 ML IV SCH (20:49)
[2018-09-23] MEDS: BUDESONIDE 0.5 MG/2 ML INHA NPPB SCH (20:53)
[2018-09-23] MEDS: IPRATROPIUM 0.5 MG/2.5 ML INHA NPPB SCH (20:53)
[2018-09-23] MEDS: OXYcodone IR 5MG TABLET PO PRN (21:04)
[2018-09-23] MEDS: LACTULOSE 10 GM/15 ML UDC PO SCH (21:04)
[2018-09-23] MEDS: HEPARIN 5,000 UNITS/ML, 1ML SQ SCH (21:04)
[2018-09-23] MEDS: ATORVASTATIN 80 MG TABLET PO SCH (21:04)
[2018-09-23 23:19] LABS: CALCIUM 8.6 mg/dL (8.5-10.1); CHLORIDE 84 mmol/L (98-107); CREATININE 0.76 mg/dL (0.55-1.02)
[2018-09-23 23:42] LABS: ANION GAP 7 mmol/L (5-15)
[2018-09-24] MEDS: ACETAMINOPHEN 325 MG TABLET PO PRN ×3 (00:28→21:30)
[2018-09-24 00:31] VITALS: BP 151/69
[2018-09-24] MEDS: IPRATROPIUM 0.5 MG/2.5 ML INHA NPPB SCH ×4 (02:52→19:53)
[2018-09-24] MEDS: OXYcodone IR 5MG TABLET PO PRN ×4 (03:31→19:36)
[2018-09-24] MEDS: HEPARIN 5,000 UNITS/ML, 1ML SQ SCH ×3 (03:35→21:30)
[2018-09-24 05:47] LABS: BASOPHILS # (AUTO) 0.03 x10^3/uL (0-0.1); BASOPHILS % (AUTO) 1 % (0-1); EOSINOPHILS # (AUTO) 0.16 x10^3/uL (0-0.4); EOSINOPHILS % (AUTO) 3 % (1-7); LYMPHOCYTES # (AUTO) 0.49 x10^3/uL (1-3.4); LYMPHOCYTES % (AUTO) 7 % (22-44); MD NO; MEAN CORPUSCULAR HEMOGLOBIN 30.8 pg (27.0-34.8); MEAN CORPUSCULAR HGB CONC 33.6 g/dL (32.4-35.8); MEAN CORPUSCULAR VOLUME 91.8 fL (80-100); MEAN PLATELET VOLUME 9.4 fL (7.4-10.4); MONOCYTES # (AUTO) 0.62 x10^3/uL (0.2-0.8); MONOCYTES % (AUTO) 10 % (2-9); NEUTROPHILS # (AUTO) 5.25 x10^3/uL (1.8-6.8); NEUTROPHILS % (AUTO) 80 % (42-75); PLATELET COUNT 251 x10^3/uL (130-400); RED BLOOD COUNT 3.54 x10^6/uL (3.82-5.3); RED CELL DISTRIBUTION WIDTH 12.9 % (9.6-15.2)
[2018-09-24] MEDS: BUDESONIDE 0.5 MG/2 ML INHA NPPB SCH ×2 (06:30→19:53)
[2018-09-24 06:55] VITALS: BP 138/70
[2018-09-24] MEDS: SENNA/DOCUSATE TABLET PO SCH (07:56)
[2018-09-24] MEDS: LACTULOSE 10 GM/15 ML UDC PO SCH ×2 (07:57→21:31)
[2018-09-24] MEDS: SODIUM CHLORIDE 0.9% 1,000 ML IV SCH (07:57)
[2018-09-24] MEDS: ASCORBIC ACID 500 MG TABLET PO SCH (07:57)
[2018-09-24] MEDS: LISINOPRIL 10 MG TABLET PO SCH (07:57)
[2018-09-24] MEDS: OMEPRAZOLE 20 MG CAPSULE.DR PO SCH (07:57)
[2018-09-24 07:58] LABS: ANION GAP 5 mmol/L (5-15); CALCIUM 8.5 mg/dL (8.5-10.1); CHLORIDE 86 mmol/L (98-107)
[2018-09-24 07:59] LABS: CREATININE 0.81 mg/dL (0.55-1.02)
[2018-09-24] MEDS ORDERED: IPRATROPIUM 0.5 MG/2.5 ML INHA NPPB SCH (09:00)
[2018-09-24 11:16] LABS: MICROSCOPIC AUTO
[2018-09-24 11:22] LABS: CULTURE INDICATED? YES
[2018-09-24 12:20] LABS: CREATININE,URINE RANDOM 71.4 mg/dL
[2018-09-24 12:37] VITALS: BP 146/71
[2018-09-24 14:33] LABS: ANION GAP 2 mmol/L (5-15); CALCIUM 8.4 mg/dL (8.5-10.1); CHLORIDE 85 mmol/L (98-107); CREATININE 0.79 mg/dL (0.55-1.02)
[2018-09-24 18:35] VITALS: BP 156/54
[2018-09-24] MEDS: CEFTRIAXONE PMX 1GM/50ML 50 ML IV SCH (19:36)
[2018-09-24 21:04] LABS: ANION GAP 6 mmol/L (5-15); CALCIUM 8.5 mg/dL (8.5-10.1); CHLORIDE 86 mmol/L (98-107); CREATININE 0.76 mg/dL (0.55-1.02)
[2018-09-24] MEDS: ATORVASTATIN 80 MG TABLET PO SCH (21:31)
[2018-09-25] VITALS: BP 147/74
[2018-09-25] MEDS: OXYcodone IR 5MG TABLET PO PRN ×5 (00:05→21:18)
[2018-09-25] MEDS: IPRATROPIUM 0.5 MG/2.5 ML INHA NPPB SCH ×4 (03:30→21:27)
[2018-09-25] MEDS: HEPARIN 5,000 UNITS/ML, 1ML SQ SCH ×3 (03:38→20:00)
[2018-09-25 05:50] LABS: CHLORIDE 87 mmol/L (98-107)
[2018-09-25 05:52] LABS: BASOPHILS # (AUTO) 0.03 x10^3/uL (0-0.1); BASOPHILS % (AUTO) 1 % (0-1); EOSINOPHILS # (AUTO) 0.15 x10^3/uL (0-0.4); EOSINOPHILS % (AUTO) 3 % (1-7); LYMPHOCYTES # (AUTO) 0.56 x10^3/uL (1-3.4); LYMPHOCYTES % (AUTO) 10 % (22-44); MD NO; MEAN CORPUSCULAR HEMOGLOBIN 30.1 pg (27.0-34.8); MEAN CORPUSCULAR HGB CONC 33.3 g/dL (32.4-35.8); MEAN CORPUSCULAR VOLUME 90.4 fL (80-100); MEAN PLATELET VOLUME 8.8 fL (7.4-10.4); MONOCYTES % (AUTO) 9 % (2-9); NEUTROPHILS # (AUTO) 4.21 x10^3/uL (1.8-6.8); NEUTROPHILS % (AUTO) 77 % (42-75); PLATELET COUNT 241 x10^3/uL (130-400); RED BLOOD COUNT 3.49 x10^6/uL (3.82-5.3); RED CELL DISTRIBUTION WIDTH 12.9 % (9.6-15.2)
[2018-09-25 05:58] LABS: ALANINE AMINOTRANSFERASE 20 U/L (12-78); ALBUMIN 2.6 g/dL (3.4-5.0); ALKALINE PHOSPHATASE 107 U/L (45-117); ANION GAP 5 mmol/L (5-15); BILIRUBIN,TOTAL 0.5 mg/dL (0.2-1.0); CALCIUM 8.4 mg/dL (8.5-10.1); CREATININE 0.75 mg/dL (0.55-1.02); TOTAL PROTEIN 5.7 g/dL (6.4-8.2)
[2018-09-25 08:05] VITALS: BP 133/60
[2018-09-25] MEDS: OMEPRAZOLE 20 MG CAPSULE.DR PO SCH (09:08)
[2018-09-25] MEDS: LACTULOSE 10 GM/15 ML UDC PO SCH ×2 (09:09→19:57)
[2018-09-25] MEDS: ASCORBIC ACID 500 MG TABLET PO SCH (09:09)
[2018-09-25] MEDS: LISINOPRIL 10 MG TABLET PO SCH (09:09)
[2018-09-25] MEDS: SENNA/DOCUSATE TABLET PO SCH (09:09)
[2018-09-25] MEDS: BUDESONIDE 0.5 MG/2 ML INHA NPPB SCH ×2 (09:40→21:27)
[2018-09-25 13:26] VITALS: BP 126/57
[2018-09-25 14:28] LABS: ANION GAP 4 mmol/L (5-15); CALCIUM 8.4 mg/dL (8.5-10.1); CHLORIDE 86 mmol/L (98-107); CREATININE 0.84 mg/dL (0.55-1.02)
[2018-09-25 15:33] LABS: OSMOLALITY,URINE 445 mOsm/kg (500-850)
[2018-09-25 18:45] VITALS: BP 129/66
[2018-09-25] MEDS: ACETAMINOPHEN 325 MG TABLET PO PRN (19:57)
[2018-09-25] MEDS: ATORVASTATIN 80 MG TABLET PO SCH (19:57)
[2018-09-25] MEDS: CEFTRIAXONE PMX 1GM/50ML 50 ML IV SCH (20:00)
[2018-09-25 20:22] LABS: CALCIUM 8.9 mg/dL (8.5-10.1); CHLORIDE 85 mmol/L (98-107); CREATININE 0.96 mg/dL (0.55-1.02)
[2018-09-25] MEDS ORDERED: SIMETHICONE 125 MG CHEW TAB PO ONE (20:30)
[2018-09-25 20:31] LABS: ANION GAP 6 mmol/L (5-15)
[2018-09-25] MEDS ORDERED: SIMETHICONE 125 MG CHEW TAB ONE (20:33)
[2018-09-25] MEDS: MORPHINE SULFATE 4 MG/ML, 1ML IVPush PRN (23:56)
[2018-09-26] MEDS ORDERED: OMNIPAQUE 350 MG/ML, 100ML BOTTLE ONE (00:20)
[2018-09-26 00:51] VITALS: BP 115/71
[2018-09-26] MEDS: IPRATROPIUM 0.5 MG/2.5 ML INHA NPPB SCH ×4 (02:58→20:40)
[2018-09-26] MEDS: HEPARIN 5,000 UNITS/ML, 1ML SQ SCH ×3 (03:23→22:04)
[2018-09-26] MEDS: MORPHINE SULFATE 4 MG/ML, 1ML IVPush PRN ×3 (03:23→09:03)
[2018-09-26 05:26] LABS: BASOPHILS # (AUTO) 0.03 x10^3/uL (0-0.1); BASOPHILS % (AUTO) 0 % (0-1); EOSINOPHILS # (AUTO) 0.13 x10^3/uL (0-0.4); EOSINOPHILS % (AUTO) 2 % (1-7); LYMPHOCYTES % (AUTO) 10 % (22-44); MD NO; MEAN CORPUSCULAR HEMOGLOBIN 30.2 pg (27.0-34.8); MEAN CORPUSCULAR HGB CONC 32.8 g/dL (32.4-35.8); MEAN CORPUSCULAR VOLUME 92.2 fL (80-100); MEAN PLATELET VOLUME 9.1 fL (7.4-10.4); MONOCYTES # (AUTO) 0.74 x10^3/uL (0.2-0.8); MONOCYTES % (AUTO) 10 % (2-9); NEUTROPHILS # (AUTO) 5.71 x10^3/uL (1.8-6.8); NEUTROPHILS % (AUTO) 78 % (42-75); PLATELET COUNT 327 x10^3/uL (130-400); RED BLOOD COUNT 3.81 x10^6/uL (3.82-5.3); RED CELL DISTRIBUTION WIDTH 12.9 % (9.6-15.2)
[2018-09-26 05:35] LABS: ALANINE AMINOTRANSFERASE 23 U/L (12-78); ALBUMIN 2.8 g/dL (3.4-5.0); ANION GAP 8 mmol/L (5-15); CALCIUM 8.9 mg/dL (8.5-10.1); CHLORIDE 84 mmol/L (98-107)
[2018-09-26 05:37] LABS: ALKALINE PHOSPHATASE 120 U/L (45-117); BILIRUBIN,TOTAL 0.4 mg/dL (0.2-1.0); TOTAL PROTEIN 6.3 g/dL (6.4-8.2)
[2018-09-26 07:26] VITALS: BP 129/72
[2018-09-26] MEDS: BUDESONIDE 0.5 MG/2 ML INHA NPPB SCH ×2 (07:30→20:40)
[2018-09-26] MEDS: SENNA/DOCUSATE TABLET PO SCH (09:00)
[2018-09-26] MEDS: ASCORBIC ACID 500 MG TABLET PO SCH (09:00)
[2018-09-26] MEDS: OMEPRAZOLE 20 MG CAPSULE.DR PO SCH (09:00)
[2018-09-26] MEDS: LISINOPRIL 10 MG TABLET PO SCH (09:00)
[2018-09-26] MEDS: LACTULOSE 10 GM/15 ML UDC PO SCH ×2 (09:00→19:27)
[2018-09-26] MEDS: BISACODYL 10 MG SUPP PR PRN (11:32)
[2018-09-26 11:52] LABS: ALBUMIN 2.9 g/dL (3.4-5.0); ANION GAP 7 mmol/L (5-15); CALCIUM 9.1 mg/dL (8.5-10.1); CHLORIDE 85 mmol/L (98-107)
[2018-09-26 11:53] LABS: CREATININE 0.94 mg/dL (0.55-1.02)
[2018-09-26 14:08] VITALS: BP 123/64
[2018-09-26] MEDS: AMPICILLIN/SULBACTAM 3 GM in SODIUM CHLORIDE 0.9% 100 ML IV SCH ×2 (15:50→19:00)
[2018-09-26] MEDS: ATORVASTATIN 80 MG TABLET PO SCH (19:27)
[2018-09-26 19:32] VITALS: BP 136/76
[2018-09-27] MEDS ORDERED: KETOROLAC 30 MG/1 ML IVPush SCH
[2018-09-27] MEDS ORDERED: LIDODERM 5% PATCH TD ONE
[2018-09-27 00:29] VITALS: BP 136/86
[2018-09-27] MEDS: AMPICILLIN/SULBACTAM 3 GM in SODIUM CHLORIDE 0.9% 100 ML IV SCH ×4 (00:59→19:45)
[2018-09-27] MEDS: IPRATROPIUM 0.5 MG/2.5 ML INHA NPPB SCH ×4 (02:11→20:40)
[2018-09-27] MEDS: HEPARIN 5,000 UNITS/ML, 1ML SQ SCH ×3 (04:07→19:45)
[2018-09-27 07:21] VITALS: BP 129/65
[2018-09-27] MEDS: LISINOPRIL 10 MG TABLET PO SCH (07:57)
[2018-09-27] MEDS: SENNA/DOCUSATE TABLET PO SCH (07:57)
[2018-09-27] MEDS: OMEPRAZOLE 20 MG CAPSULE.DR PO SCH (07:57)
[2018-09-27] MEDS: LACTULOSE 10 GM/15 ML UDC PO SCH ×2 (07:57→19:44)
[2018-09-27] MEDS: ASCORBIC ACID 500 MG TABLET PO SCH (07:57)
[2018-09-27] MEDS: BUDESONIDE 0.5 MG/2 ML INHA NPPB SCH ×2 (08:00→20:40)
[2018-09-27 09:02] LABS: ALANINE AMINOTRANSFERASE 21 U/L (12-78); ALBUMIN 2.5 g/dL (3.4-5.0); ANION GAP 9 mmol/L (5-15); CALCIUM 8.8 mg/dL (8.5-10.1); CHLORIDE 90 mmol/L (98-107)
[2018-09-27 09:05] LABS: ALKALINE PHOSPHATASE 114 U/L (45-117); BILIRUBIN,TOTAL 0.4 mg/dL (0.2-1.0); TOTAL PROTEIN 5.8 g/dL (6.4-8.2)
[2018-09-27] MEDS: CEFDINIR 300 MG CAPSULE PO SCH ×2 (10:58→22:31)
[2018-09-27 12:54] VITALS: BP 148/71
[2018-09-27 17:27] LABS: ANION GAP 4 mmol/L (5-15); CALCIUM 8.9 mg/dL (8.5-10.1); CHLORIDE 91 mmol/L (98-107); CREATININE 0.97 mg/dL (0.55-1.02)
[2018-09-27] MEDS: BISACODYL 10 MG SUPP PR PRN (17:37)
[2018-09-27 19:28] VITALS: BP 127/63
[2018-09-27] MEDS: ATORVASTATIN 80 MG TABLET PO SCH (19:45)
[2018-09-28] MEDS: AMPICILLIN/SULBACTAM 3 GM in SODIUM CHLORIDE 0.9% 100 ML IV SCH ×4 (01:21→21:33)
[2018-09-28 01:43] VITALS: BP 125/56
[2018-09-28] MEDS: IPRATROPIUM 0.5 MG/2.5 ML INHA NPPB SCH ×3 (03:30→19:45)
[2018-09-28] MEDS: HEPARIN 5,000 UNITS/ML, 1ML SQ SCH ×3 (03:46→21:33)
[2018-09-28 05:59] LABS: BASOPHILS # (AUTO) 0.04 x10^3/uL (0-0.1); BASOPHILS % (AUTO) 1 % (0-1); EOSINOPHILS # (AUTO) 0.21 x10^3/uL (0-0.4); EOSINOPHILS % (AUTO) 4 % (1-7); LYMPHOCYTES # (AUTO) 0.58 x10^3/uL (1-3.4); LYMPHOCYTES % (AUTO) 10 % (22-44); MD NO; MEAN CORPUSCULAR HEMOGLOBIN 30.5 pg (27.0-34.8); MEAN CORPUSCULAR HGB CONC 33.4 g/dL (32.4-35.8); MEAN CORPUSCULAR VOLUME 91.6 fL (80-100); MEAN PLATELET VOLUME 8.8 fL (7.4-10.4); MONOCYTES # (AUTO) 0.58 x10^3/uL (0.2-0.8); MONOCYTES % (AUTO) 10 % (2-9); NEUTROPHILS # (AUTO) 4.59 x10^3/uL (1.8-6.8); NEUTROPHILS % (AUTO) 76 % (42-75); PLATELET COUNT 285 x10^3/uL (130-400); RED BLOOD COUNT 3.48 x10^6/uL (3.82-5.3)
[2018-09-28 06:23] LABS: ALBUMIN 2.5 g/dL (3.4-5.0); ANION GAP 4 mmol/L (5-15); CHLORIDE 93 mmol/L (98-107)
[2018-09-28 06:29] LABS: % IRON SATURATION 28 % (20-55); ALANINE AMINOTRANSFERASE 20 U/L (12-78); ALKALINE PHOSPHATASE 106 U/L (45-117); BILIRUBIN,TOTAL 0.5 mg/dL (0.2-1.0); CREATININE 0.89 mg/dL (0.55-1.02); IRON LEVEL 58 mcg/dL (50-170); TOTAL IRON BINDING CAPACITY 205 mcg/dL (250-450); TOTAL PROTEIN 5.5 g/dL (6.4-8.2)
[2018-09-28 06:44] VITALS: BP 102/78
[2018-09-28] MEDS: LACTULOSE 10 GM/15 ML UDC PO SCH ×2 (08:31→21:33)
[2018-09-28] MEDS: SENNA/DOCUSATE TABLET PO SCH (08:33)
[2018-09-28] MEDS: OMEPRAZOLE 20 MG CAPSULE.DR PO SCH (08:33)
[2018-09-28] MEDS: ASCORBIC ACID 500 MG TABLET PO SCH (08:33)
[2018-09-28] MEDS: LISINOPRIL 10 MG TABLET PO SCH (08:37)
[2018-09-28] MEDS: ACETAMINOPHEN 325 MG TABLET PO PRN ×2 (08:47→18:38)
[2018-09-28] MEDS: BUDESONIDE 0.5 MG/2 ML INHA NPPB SCH ×2 (09:00→19:45)
[2018-09-28] MEDS: CEFDINIR 300 MG CAPSULE PO SCH (11:50)
[2018-09-28 13:35] VITALS: BP 130/70
[2018-09-28 20:15] VITALS: BP 149/73
[2018-09-28] MEDS: OXYcodone IR 5MG TABLET PO PRN (21:33)
[2018-09-28] MEDS: ATORVASTATIN 80 MG TABLET PO SCH (21:33)
[2018-09-29 00:34] VITALS: BP 129/63
[2018-09-29] MEDS: CEFDINIR 300 MG CAPSULE PO SCH ×2 (00:40→12:32)
[2018-09-29] MEDS: IPRATROPIUM 0.5 MG/2.5 ML INHA NPPB SCH ×4 (03:30→19:47)
[2018-09-29] MEDS: OXYcodone IR 5MG TABLET PO PRN ×4 (03:44→23:28)
[2018-09-29] MEDS: AMPICILLIN/SULBACTAM 3 GM in SODIUM CHLORIDE 0.9% 100 ML IV SCH (03:44)
[2018-09-29 07:57] VITALS: BP 135/62
[2018-09-29 08:24] LABS: BASOPHILS # (AUTO) 0.04 x10^3/uL (0-0.1); BASOPHILS % (AUTO) 1 % (0-1); EOSINOPHILS # (AUTO) 0.21 x10^3/uL (0-0.4); EOSINOPHILS % (AUTO) 3 % (1-7); LYMPHOCYTES # (AUTO) 0.74 x10^3/uL (1-3.4); LYMPHOCYTES % (AUTO) 12 % (22-44); MD NO; MEAN CORPUSCULAR HEMOGLOBIN 29.8 pg (27.0-34.8); MEAN CORPUSCULAR VOLUME 90.4 fL (80-100); MEAN PLATELET VOLUME 7.9 fL (7.4-10.4); MONOCYTES # (AUTO) 0.61 x10^3/uL (0.2-0.8); MONOCYTES % (AUTO) 10 % (2-9); NEUTROPHILS # (AUTO) 4.43 x10^3/uL (1.8-6.8); NEUTROPHILS % (AUTO) 74 % (42-75); PLATELET COUNT 270 x10^3/uL (130-400); RED BLOOD COUNT 3.32 x10^6/uL (3.82-5.3); RED CELL DISTRIBUTION WIDTH 12.9 % (9.6-15.2)
[2018-09-29 08:36] LABS: ALANINE AMINOTRANSFERASE 19 U/L (12-78); ALBUMIN 2.5 g/dL (3.4-5.0); ANION GAP 6 mmol/L (5-15); CALCIUM 8.9 mg/dL (8.5-10.1); CHLORIDE 94 mmol/L (98-107)
[2018-09-29 08:38] LABS: ALKALINE PHOSPHATASE 96 U/L (45-117); BILIRUBIN,TOTAL 0.4 mg/dL (0.2-1.0); CREATININE 0.85 mg/dL (0.55-1.02); TOTAL PROTEIN 5.4 g/dL (6.4-8.2)
[2018-09-29] MEDS: ASCORBIC ACID 500 MG TABLET PO SCH (08:47)
[2018-09-29] MEDS: LACTULOSE 10 GM/15 ML UDC PO SCH ×2 (08:47→20:49)
[2018-09-29] MEDS: SENNA/DOCUSATE TABLET PO SCH (08:47)
[2018-09-29] MEDS: LISINOPRIL 10 MG TABLET PO SCH (08:47)
[2018-09-29] MEDS: OMEPRAZOLE 20 MG CAPSULE.DR PO SCH (08:48)
[2018-09-29] MEDS: BUDESONIDE 0.5 MG/2 ML INHA NPPB SCH ×2 (09:00→19:47)
[2018-09-29] MEDS ORDERED: LIDODERM 5% PATCH TD SCH (09:30)
[2018-09-29] MEDS: HEPARIN 5,000 UNITS/ML, 1ML SQ SCH ×2 (10:34→17:04)
[2018-09-29] MEDS: AMPICILLIN 500MG CAPSULE PO SCH ×3 (10:34→20:49)
[2018-09-29 12:19] VITALS: BP 114/64
[2018-09-29 18:42] VITALS: BP 126/70
[2018-09-29] MEDS: ATORVASTATIN 80 MG TABLET PO SCH (20:49)
[2018-09-30] MEDS: CEFDINIR 300 MG CAPSULE PO SCH ×2 (01:11→10:21)
[2018-09-30] MEDS: HEPARIN 5,000 UNITS/ML, 1ML SQ SCH ×2 (01:13→10:28)
[2018-09-30 01:25] VITALS: BP 127/73
[2018-09-30] MEDS: IPRATROPIUM 0.5 MG/2.5 ML INHA NPPB SCH ×3 (02:30→14:25)
[2018-09-30] MEDS: OXYcodone IR 5MG TABLET PO PRN ×2 (05:31→10:21)
[2018-09-30 07:54] VITALS: BP 114/72
[2018-09-30 08:42] LABS: ALANINE AMINOTRANSFERASE 24 U/L (12-78); ALBUMIN 2.8 g/dL (3.4-5.0); ANION GAP 4 mmol/L (5-15); CHLORIDE 97 mmol/L (98-107); CREATININE 0.96 mg/dL (0.55-1.02)
[2018-09-30 08:45] LABS: ALKALINE PHOSPHATASE 114 U/L (45-117); BILIRUBIN,TOTAL 0.4 mg/dL (0.2-1.0); TOTAL PROTEIN 6.1 g/dL (6.4-8.2)
[2018-09-30] MEDS: BUDESONIDE 0.5 MG/2 ML INHA NPPB SCH (09:00)
[2018-09-30] MEDS: OMEPRAZOLE 20 MG CAPSULE.DR PO SCH (10:21)
[2018-09-30] MEDS: AMPICILLIN 500MG CAPSULE PO SCH (10:21)
[2018-09-30] MEDS: SENNA/DOCUSATE TABLET PO SCH (10:21)
[2018-09-30] MEDS: LISINOPRIL 10 MG TABLET PO SCH (10:21)
[2018-09-30] MEDS: ASCORBIC ACID 500 MG TABLET PO SCH (10:21)
[2018-09-30] MEDS: LACTULOSE 10 GM/15 ML UDC PO SCH (10:21)
[2018-09-30] MEDS ORDERED: AMPI500C2 PO (14:13)
[2018-09-30 15:00] VITALS: BP 119/63
== END 2018-09-30 16:30 | DRG 641 ==
LOC: ED 18:03 → EDIP 18:15 → 4WST 19:13
PROVIDERS: ADMIT Family Medicine; ATTEND Family Medicine
DX: E87.1 Hypo-osmolality and hyponatremia (principal); G93.40 Encephalopathy, unspecified; J96.11 Chronic respiratory failure with hypoxia; K56.7 Ileus, unspecified; M48.56XA Collapsed vertebra, not elsewhere classified, lumbar region, initial encounter for fracture; N39.0 Urinary tract infection, site not specified; E87.8 Other disorders of electrolyte and fluid balance, not elsewhere classified; M19.90 Unspecified osteoarthritis, unspecified site; J44.9 Chronic obstructive pulmonary disease, unspecified; R53.81 Other malaise; D64.9 Anemia, unspecified; E11.22 Type 2 diabetes mellitus with diabetic chronic kidney disease; E78.5 Hyperlipidemia, unspecified; G47.33 Obstructive sleep apnea (adult) (pediatric); H35.30 Unspecified macular degeneration; I12.9 Hypertensive chronic kidney disease with stage 1 through stage 4 chronic kidney disease, or unspecified chronic kidney disease; I27.20 Pulmonary hypertension, unspecified; K21.9 Gastro-esophageal reflux disease without esophagitis; N18.2 Chronic kidney disease, stage 2 (mild); R41.2 Retrograde amnesia; Z80.0 Family history of malignant neoplasm of digestive organs; Z85.828 Personal history of other malignant neoplasm of skin; Z87.891 Personal history of nicotine dependence; Z99.81 Dependence on supplemental oxygen
CPT/HCPCS: 36415; 70450; 71045; 71046; 74018; 74177; 80048; 80053; 81001; 82040; 82570; 82728; 83540; 83550; 83605; 83690; 83735; 83935; 84100; 84145; 84300; 85025; 85610; 87040; 87077; 87086; 87186; 93005; 93970; 94640; G0378; J0295; J0696; J1644; J1885; J7626; J7644; Q9967; J2270; J7030

== ENCOUNTER 2018-11-08 14:01 | Inpatient (IN) | payer MEDICARE ==
[~2018-11-08] VITALS: Ht 160 cm; Wt 62.8 kg
[2018-11-13 12:23] VITALS: BP 132/60
== END 2018-11-13 18:15 | disposition home health service (06) | DRG 177 ==
LOC: ED 16:06 → EDIP 16:07 → ED 16:34 → 4EST 19:44
PROVIDERS: ADMIT Internal Medicine; ATTEND Internal Medicine
DX: J69.0 Pneumonitis due to inhalation of food and vomit (principal); J96.01 Acute respiratory failure with hypoxia; J44.0 Chronic obstructive pulmonary disease with (acute) lower respiratory infection; I13.0 Hypertensive heart and chronic kidney disease with heart failure and stage 1 through stage 4 chronic kidney disease, or unspecified chronic kidney disease; J44.1 Chronic obstructive pulmonary disease with (acute) exacerbation; D64.9 Anemia, unspecified; E11.22 Type 2 diabetes mellitus with diabetic chronic kidney disease; E11.65 Type 2 diabetes mellitus with hyperglycemia; E78.5 Hyperlipidemia, unspecified; G47.33 Obstructive sleep apnea (adult) (pediatric); I50.9 Heart failure, unspecified; K21.9 Gastro-esophageal reflux disease without esophagitis; N18.9 Chronic kidney disease, unspecified; Z80.0 Family history of malignant neoplasm of digestive organs; Z85.828 Personal history of other malignant neoplasm of skin; Z87.891 Personal history of nicotine dependence; Z99.81 Dependence on supplemental oxygen; Z88.8 Allergy status to other drugs, medicaments and biological substances
CPT/HCPCS: 36415; 71045; 80048; 80053; 80069; 82272; 82728; 82962; 83540; 83550; 83605; 83735; 83880; 84443; 84484; 85025; 87040; 87205; 93005; 93306; 94640; 99285; G0378; J0696; J1650; J2543; J7620; J7626; J0295; J1815; J1940; J2930; J3475; J7030; J7512

== ENCOUNTER 2019-01-24 13:16 | Outpatient (CLI) | payer MEDICARE ==
[~2019-01-24 13:16] MED LIST changes: +AMOX-367 PO; +AMPI500C2 PO; +ASPI-515 PO; +LACT1TAB13 PO; +OXYC5CAP2 PO; +PRED10TA PO; +SODI1TAB PO
== END 2019-01-24 23:59 | disposition home or self-care (01) ==
LOC: WOUND 13:16
PROVIDERS: ATTEND Nurse Practitioner Family
DX: E11.622 Type 2 diabetes mellitus with other skin ulcer (principal); L97.221 Non-pressure chronic ulcer of left calf limited to breakdown of skin; R21 Rash and other nonspecific skin eruption; E11.65 Type 2 diabetes mellitus with hyperglycemia; I12.9 Hypertensive chronic kidney disease with stage 1 through stage 4 chronic kidney disease, or unspecified chronic kidney disease; E11.22 Type 2 diabetes mellitus with diabetic chronic kidney disease; N18.9 Chronic kidney disease, unspecified; E78.5 Hyperlipidemia, unspecified; J44.9 Chronic obstructive pulmonary disease, unspecified; K21.9 Gastro-esophageal reflux disease without esophagitis; G47.33 Obstructive sleep apnea (adult) (pediatric); Z87.891 Personal history of nicotine dependence; Z85.820 Personal history of malignant melanoma of skin; Z88.8 Allergy status to other drugs, medicaments and biological substances
CPT/HCPCS: G0463

== ENCOUNTER → 2019-01-27 | Outpatient (CLI) | payer MEDICARE ==
[~2019-01-27] MED LIST changes: +LACT10SO24 PO; -LACT10SO5 PO
== END | disposition home or self-care (01) ==
LOC: CVU 12:10
PROVIDERS: ATTEND Nurse Practitioner Family
DX: I70.203 Unspecified atherosclerosis of native arteries of extremities, bilateral legs (principal); I82.811 Embolism and thrombosis of superficial veins of right lower extremity; L97.221 Non-pressure chronic ulcer of left calf limited to breakdown of skin; I12.9 Hypertensive chronic kidney disease with stage 1 through stage 4 chronic kidney disease, or unspecified chronic kidney disease; E11.22 Type 2 diabetes mellitus with diabetic chronic kidney disease; N18.9 Chronic kidney disease, unspecified; E78.5 Hyperlipidemia, unspecified; J44.9 Chronic obstructive pulmonary disease, unspecified; G47.30 Sleep apnea, unspecified; Z87.891 Personal history of nicotine dependence
CPT/HCPCS: 93922; 93925; 93970

== ENCOUNTER 2019-03-13 06:37 | Inpatient (IN) | payer MEDICARE ==
[~2019-03-13] VITALS: Ht 162.6 cm; Wt 63.5 kg
--- NOTE | 2019-03-13 06:40 | NUR ---
Patient BIB ambulance c/o [place] that woke her up. Patient is having difficulty speaking; per EMS, neighbors were at her house and stated that is not normal for patient. Patient is blind. Patient is in no apparent distress.
[2019-03-13] MEDS ORDERED: ALBUTEROL/IPRATROPIUM 2.5MG/0.5MG, 3 ML ONE (06:59)
[2019-03-13] MEDS ORDERED: SODIUM CHLORIDE FLUSH 10ML SYR IVF ONE (07:00)
[2019-03-13] MEDS ORDERED: ALBUTEROL/IPRATROPIUM 2.5MG/0.5MG, 3 ML NPPB ONE (07:00)
--- NOTE | 2019-03-13 07:03 | NUR ---
Report from Roman WILLIAM. Pt resting in bed with eyes closed, resp even and unlabored. Pt awakens easily to her name being called but does not make verbal response. All monitors remain in place, all safety measures observed.
--- NOTE | 2019-03-13 07:14 | NUR ---
Pt in CT at this time.
[2019-03-13 07:19] LABS: BASOPHILS # (AUTO) 0.03 x10^3/uL (0-0.1); BASOPHILS % (AUTO) 1 % (0-1); EOSINOPHILS # (AUTO) 0.11 x10^3/uL (0-0.4); EOSINOPHILS % (AUTO) 2 % (1-7); LYMPHOCYTES # (AUTO) 0.68 x10^3/uL (1-3.4); LYMPHOCYTES % (AUTO) 9 % (22-44); MD NO; MEAN CORPUSCULAR HGB CONC 32.2 g/dL (32.4-35.8); MEAN PLATELET VOLUME 10.1 fL (7.4-10.4); MONOCYTES % (AUTO) 4 % (2-9); NEUTROPHILS # (AUTO) 6.18 x10^3/uL (1.8-6.8); NEUTROPHILS % (AUTO) 85 % (42-75); PLATELET COUNT 205 x10^3/uL (130-400); RED BLOOD COUNT 4.13 x10^6/uL (3.82-5.3); RED CELL DISTRIBUTION WIDTH 15.1 % (9.6-15.2)
[2019-03-13 07:28] LABS: ALANINE AMINOTRANSFERASE 44 U/L (12-78); ALBUMIN 3.6 g/dL (3.4-5.0); ANION GAP 6 mmol/L (5-15); CALCIUM 9.2 mg/dL (8.5-10.1); CHLORIDE 99 mmol/L (98-107); CREATININE 0.99 mg/dL (0.55-1.02)
[2019-03-13 07:29] LABS: INTERNATIONAL NORMALIZED RATIO 0.98 (0.93-1.1); PROTHROMBIN TIME 10.3 Seconds (9.6-11.5)
[2019-03-13 07:32] LABS: ALKALINE PHOSPHATASE 100 U/L (45-117); BILIRUBIN,TOTAL 0.6 mg/dL (0.2-1.0); TOTAL PROTEIN 7.2 g/dL (6.4-8.2); TROPONIN I < 0.015 ng/mL (0.000-0.045)
--- NOTE | 2019-03-13 07:32 | NUR ---
Pt back from CT. Pt straight cathed per order. Pt positioned for comfort in bed with warm blanket. Pt able to say "thank you" and "yes" and "no" in appropriate response to questions and speech by staff members though this is slurred. Pt denies pain at this time, denies other needs.
[2019-03-13 07:33] LABS: SALICYLATE LEVEL < 1.7 mg/dL (2.8-20.0)
[2019-03-13 07:45] LABS: MICROSCOPIC NOT IND
[2019-03-13 07:46] LABS: CULTURE INDICATED? NO
--- NOTE | 2019-03-13 08:22 | NUR ---
Pt resting in bed with eyes closed, resp even and unlabored, NADN.
--- NOTE | 2019-03-13 08:55 | NUR ---
Report to Franklin WILLIAM. No change in pt condition. Dr. Xavier at bedside to evaluate pt for admission.
[2019-03-13] MEDS ORDERED: SODIUM CHLORIDE 0.9% 1,000 ML IV SCH (09:03)
[2019-03-13] MEDS ORDERED: ONDANSETRON 2MG/ML, 2ML IVPush PRN (09:30)
[2019-03-13 10:08] LABS: HEMOGLOBIN A1C 7.4 % (4.2-6.3)
[2019-03-13 10:18] VITALS: BP 145/76
[2019-03-13] MEDS: INSULIN LISPRO 100 UNITS/ML, PEN SQ-INSULIN SCH ×3 (11:00→21:05)
[2019-03-13] MEDS ORDERED: ALBUTEROL/IPRATROPIUM 2.5MG/0.5MG, 3 ML HHN SCH (11:00)
[2019-03-13 12:15] VITALS: BP 148/65
[2019-03-13] MEDS ORDERED: MULT-257 PO (13:18)
[2019-03-13] MEDS: IPRATROPIUM 0.5 MG/2.5 ML INHA NPPB SCH ×2 (14:54→21:00)
[2019-03-13 19:02] VITALS: BP 122/55
[2019-03-13] MEDS ORDERED: BUDESONIDE 0.5 MG/2 ML INHA INH SCH (21:00)
[2019-03-13] MEDS ORDERED: TEMPLATE NON-FORMULARY MED. (Budesonide/Formoterol Fumarate (Symbicort 160-4.5 Mcg Inhaler INH SCH (21:00)
[2019-03-13] MEDS: BUDESONIDE 0.5 MG/2 ML INHA INH SCH (21:00)
[2019-03-13] MEDS: ATORVASTATIN 80 MG TABLET PO SCH (21:03)
[2019-03-14 00:12] VITALS: BP 111/63
[2019-03-14 03:11] VITALS: BP 162/84
[2019-03-14] MEDS ORDERED: ACETAMINOPHEN 325 MG TABLET PO PRN ×2 (03:30→09:30)
[2019-03-14 04:05] VITALS: BP 129/70
[2019-03-14 05:31] LABS: BASOPHILS # (AUTO) 0.03 x10^3/uL (0-0.1); BASOPHILS % (AUTO) 1 % (0-1); EOSINOPHILS # (AUTO) 0.21 x10^3/uL (0-0.4); EOSINOPHILS % (AUTO) 4 % (1-7); LYMPHOCYTES # (AUTO) 0.76 x10^3/uL (1-3.4); LYMPHOCYTES % (AUTO) 14 % (22-44); MD NO; MEAN CORPUSCULAR VOLUME 87.6 fL (80-100); MEAN PLATELET VOLUME 10.4 fL (7.4-10.4); MONOCYTES % (AUTO) 8 % (2-9); NEUTROPHILS % (AUTO) 74 % (42-75); PLATELET COUNT 192 x10^3/uL (130-400); RED BLOOD COUNT 3.91 x10^6/uL (3.82-5.3)
[2019-03-14 05:42] LABS: ANION GAP 5 mmol/L (5-15); CALCIUM 8.9 mg/dL (8.5-10.1); CHLORIDE 102 mmol/L (98-107)
[2019-03-14 05:45] LABS: ALANINE AMINOTRANSFERASE 45 U/L (12-78); ALKALINE PHOSPHATASE 86 U/L (45-117); BILIRUBIN,TOTAL 0.7 mg/dL (0.2-1.0); CHOL/HDL RATIO 3.7; CHOLESTEROL, TOTAL 227 mg/dL (140-239); CREATININE 0.95 mg/dL (0.55-1.02); HDL CHOL % 27 % (28-40); HDL CHOLESTEROL (DIRECT) 62 mg/dL (40-60); LDL CHOLESTEROL,CALCULATED 153 mg/dL (54-169); LDL/HDL RATIO 2.5 (0.5-3.0); TOTAL PROTEIN 6.3 g/dL (6.4-8.2); TRIGLYCERIDES 60 mg/dL (50-200); VLDL CHOLESTEROL 12 mg/dL (0-25)
[2019-03-14] MEDS: OMEPRAZOLE 20 MG CAPSULE.DR PO SCH (05:53)
[2019-03-14] MEDS ORDERED: ASPIRIN 81 MG TABLET EC PO SCH (06:00)
[2019-03-14] MEDS: IPRATROPIUM 0.5 MG/2.5 ML INHA NPPB SCH ×3 (07:00→20:07)
[2019-03-14] MEDS: BUDESONIDE 0.5 MG/2 ML INHA INH SCH ×2 (07:00→20:07)
[2019-03-14] MEDS: INSULIN LISPRO 100 UNITS/ML, PEN SQ-INSULIN SCH ×4 (07:00→21:34)
[2019-03-14 07:01] VITALS: BP 134/61
[2019-03-14] MEDS ORDERED: TEMPLATE NON-FORMULARY MED. (Tiotropium Bromide** (Spiriva**) 18 MCG) INH SCH (09:00)
[2019-03-14] MEDS: SODIUM CHLORIDE 0.9% 1,000 ML IV SCH (09:15)
[2019-03-14] MEDS: LACTOBACILLUS CHEW TABLET PO SCH ×3 (09:16→21:35)
[2019-03-14] MEDS: ENOXAPARIN 40 MG/0.4 ML SQ SCH (09:16)
[2019-03-14 12:34] VITALS: BP 125/63
[2019-03-14 19:02] VITALS: BP 131/52
[2019-03-14] MEDS: ATORVASTATIN 80 MG TABLET PO SCH (21:35)
[2019-03-15 00:13] VITALS: BP 152/64
[2019-03-15] MEDS: SODIUM CHLORIDE 0.9% 1,000 ML IV SCH (01:43)
[2019-03-15] MEDS: IPRATROPIUM 0.5 MG/2.5 ML INHA NPPB SCH ×3 (03:00→15:00)
[2019-03-15] MEDS ORDERED: ASPIRIN 81 MG TABLET CHEW PO SCH (05:25)
[2019-03-15] MEDS: OMEPRAZOLE 20 MG CAPSULE.DR PO SCH (06:13)
[2019-03-15] MEDS: INSULIN LISPRO 100 UNITS/ML, PEN SQ-INSULIN SCH ×2 (07:00→11:00)
[2019-03-15 07:13] VITALS: BP 136/62
[2019-03-15] MEDS: BUDESONIDE 0.5 MG/2 ML INHA INH SCH (09:00)
[2019-03-15] MEDS: ENOXAPARIN 40 MG/0.4 ML SQ SCH (09:02)
[2019-03-15] MEDS: LACTOBACILLUS CHEW TABLET PO SCH (09:02)
[2019-03-15] MEDS ORDERED: ASPI-515 PO (11:09)
[2019-03-15] MEDS ORDERED: ACID1TAB7 PO (11:09)
[2019-03-15 12:15] VITALS: BP 149/60
== END 2019-03-15 16:05 | disposition home health service (06) | DRG 69 ==
LOC: ED 09:52 → EDIP 09:55 → 4EST 10:24 → DCLOUNGE 03-15 15:55
PROVIDERS: ADMIT Internal Medicine; ATTEND Internal Medicine
PROC: 0T9B70Z Drainage of Bladder with Drainage Device, Via Natural or Artificial Opening (ICD-10-PCS; principal; 2019-03-13)
DX: G45.9 Transient cerebral ischemic attack, unspecified (principal); J96.11 Chronic respiratory failure with hypoxia; E87.1 Hypo-osmolality and hyponatremia; R47.01 Aphasia; E11.9 Type 2 diabetes mellitus without complications; E78.5 Hyperlipidemia, unspecified; H54.8 Legal blindness, as defined in USA; I05.0 Rheumatic mitral stenosis; I10 Essential (primary) hypertension; I27.20 Pulmonary hypertension, unspecified; K21.9 Gastro-esophageal reflux disease without esophagitis; J44.9 Chronic obstructive pulmonary disease, unspecified; R47.1 Dysarthria and anarthria; Z86.73 Personal history of transient ischemic attack (TIA), and cerebral infarction without residual deficits; Z87.891 Personal history of nicotine dependence; Z85.828 Personal history of other malignant neoplasm of skin; I65.23 Occlusion and stenosis of bilateral carotid arteries
CPT/HCPCS: 0399T; 36415; 70450; 70551; 71045; 80053; 80061; 80307; 81003; 82140; 82962; 83036; 83605; 84484; 85025; 85610; 93005; 93306; 93880; 94640; 99291; G0378; J1650; J7620; J7626; J7644; 92523-GN; J1815; J7030